=== PATIENT | male | born 1940 | race Caucasian/White ===

== ENCOUNTER 2020-08-02 03:56 | Inpatient (IN) | payer MEDICARE, OTHER, SELFPAY ==
[2020-08-02] VITALS (15 sets, daily range): BP systolic 96–135; BP diastolic 51–84; PULSE 58–84; RESP 12–18; TEMP 36–37.2; O2SAT 97–100; BMI 20.3
--- NOTE | ~2020-08-02 | CT_ITS ---
EXAMINATION: CT brain wo con DATE: 08/02/2020 04:45 INDICATION: Fall. Altered mental status. TECHNIQUE: Computed tomography (CT) of the head was performed without intravenous contrast. The mA wa s adjusted according to patient size. Iterative reconstruction technique was employed. Exam dose: 68 1.00 mGy-cm total exam DLP. COMPARISON: 04/02/2015 CT brain FINDINGS: Bilateral vertebral artery and carotid siphon internal carotid artery calcifications. There is nonspecific diminished attenuation of the cerebral white matter, likely due to chronic small vess el ischemic changes. No intracranial mass lesion or hemorrhage, midline shift or mass effect effect. There is central and cortical cerebral atrophy. No subdural or epidural hematoma is detected. IMPRESSION: Cerebral atherosclerosis and chronic small vessel ischemic changes of the cerebral white matter No acute intracranial finding Reviewed, dictated and finalized at [facility]. Reviewed, dictated and finalized at location A.
--- NOTE | ~2020-08-02 | XR_ITS ---
XR chest 1V DATE: 08/02/2020 04:48 INDICATION: Transient alteration of awareness TECHNIQUE: AP chest on 08/02/2020 at 0445 hours COMPARISON: 03/25/2010 PA and lateral chest FINDINGS: Heart size appears within normal range. Is aortic calcification and mild unfolding. No donald r or mediastinal enlargement. Minimal atelectasis in the lower lung zones; otherwise no pulmonary con solidation, pleural effusion or pneumothorax. Diffuse osteopenia. Surgical clips, right upper quadrant, consistent with cholecystectomy degenerative spurring of the th oracic spine. IMPRESSION: Minimal atelectasis in the lower lung zones; otherwise no active disease Reviewed, dictated and finalized at location [facility]. IMPRESSION: Minimal atelectasis in the lower lung zones; otherwise no active di sease
--- NOTE | ~2020-08-02 | CT_ITS ---
EXAMINATION: CT cervical spine wo con DATE: 08/02/2020 04:45 INDICATION: Neck pain. Fall. TECHNIQUE: Computed tomography (CT) of the cervical spine was performed without intravenous contrast. Automated exposure control and iterative reconstruction technique were employed. The dose-length pro duct was 216.84 mGy-cm. COMPARISON: None FINDINGS: Bone alignment is normal. Vertebral body heights are normal. There is moderately decreased disc height at C3-C4 and C5-C6. The following disc levels are specifically discussed: C2-C3: There is mild bilateral uncovertebral joint osteoarthritis. There is moderate bilateral facet joint osteoarthritis. There is no neural foraminal stenosis. There is no central canal stenosis. C3-C4: There is mild right and severe left uncovertebral joint osteoarthritis. There is moderate righ t facet joint osteoarthritis. There is ankylosis of left facet joint with mild hypertrophy. There is mild bilateral neural foraminal stenosis. There is mild central canal stenosis. C4-C5: There is no uncovertebral joint osteoarthritis. There is mild right and moderate left facet kobi int osteoarthritis. There is no neural foraminal stenosis. There is no central canal stenosis. C5-C6: There is mild right and moderate left uncovertebral joint osteoarthritis. There is mild bilate ral facet joint osteoarthritis. There is mild left neural foraminal stenosis. There is mild central c anal stenosis. C6-C7: There is no uncovertebral joint osteoarthritis. There is mild bilateral facet joint osteoarthr itis. There is no neural foraminal stenosis. There is no central canal stenosis. C7-T1: There is no uncovertebral joint osteoarthritis. There is mild right and moderate left facet kobi int osteoarthritis. There is mild left neural foraminal stenosis. There is no central canal stenosis. IMPRESSION: 1. No fracture. 2. Moderate cervical spondylosis. Reviewed, dictated and finalized at location D.
--- NOTE | ~2020-08-02 | US_ITS ---
EXAMINATION: US abdomen complete DATE: 08/05/2020 14:39 INDICATION: Pancytopenia. TECHNIQUE: Multiple grayscale and Doppler ultrasound images of the abdomen were obtained. COMPARISON: None FINDINGS: The pancreas is obscured by bowel gas. The liver is normal without focal lesion. There is n ormal flow in main portal vein. The gallbladder is absent. The common duct is normal and measures 5 m m. The kidneys are normal in size. The spleen is normal in size and measures 11.6 cm. Abdominal aorta is normal in caliber. The inferior vena cava is normal. IMPRESSION: 1. Normal complete abdomen ultrasound status post cholecystectomy. Reviewed, dictated and finalized at location A.
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
--- NOTE | 2020-08-02 04:07 | ECG_ITS ---
Measurements Intervals [place] Rate: 76 P: 56 RI: 165 QRS: 46 QRSD: 98 T: 87 QT: 377 QTc: 424 Interpretive Statements SINUS RHYTHM CANNOT RULE OUT SEPTAL INFARCT, AGE INDETERMINATE ST-T WAVE ABNORMALITY IN ANTERIOR LEADS- CONSIDER ISCHEMIA BASELINE ARTIFACT- II, III, AVF, V1-V6 ABNORMAL ECG Electronically Signed On 08-02-2020 6:51:53 CDT by Ron Cornell D.O.
--- NOTE | 2020-08-02 04:12 | PC.NURSE ---
EDMD presented to bedside. adds that pt has not been hydrating well. Pt is calm and cooperative at this time and resting on cart in its lowest position with call button and personal items within reach. advised to press call button for assistance.
[2020-08-02] MEDS: SODIUM CHLORIDE 0.9% IV 500 ML 999 ML IV CONT (04:17)
[2020-08-02 04:24] LABS: Alveolar/Arterial O2 Gradient 15.1 mmHg; Base Excess ABG 3.1 mEq/l (+/-2.0); Fractional Inspired Oxygen 21 %; HCO3 ABG 27.9 mEq/l (22.0-26.0); Oxygen Content ABG 15.2 %vol (16.0-22.0); Oxygen Saturation ABG 96.3 % (95.0-100.0); Oxyhemoglobin 94.9 % THb (90.0-100.0); PCO2 ABG 43.6 mmHg (35.0-45.0); PO2 ABG 82.4 mmHg (80.0-100.0); PO2 FiO2 Ratio Arterial Blood 3.92 %; Total Hemoglobin 11.3 g/dL (12.0-18.0); pH ABG 7.424 (7.350-7.450)
[2020-08-02 04:25] LABS: Device ROOM AIR; Modified Allen's Test Pass; Site Drawn LEFT RADIAL
[2020-08-02 04:31] LABS: Basophils Percent Auto 0.2 % (0.2-1.2); Eosinophils Absolute Auto 0.1 K/mm3 (0-0.3); Eosinophils Percent Auto 1.4 % (0-4.4); Hematocrit 35.5 % (42.0-52.0); Hemoglobin 11.3 g/dL (14.0-18.0); Immature Granulocyte Absolute 0.01 K/mm3 (0.00-0.031); Immature Granulocyte Percent A 0.2 % (0-0.5); Lymphocytes Absolute Auto 0.94 K/mm3 (0.9-3.2); Lymphocytes Percent Auto 22.4 % (18.3-44.2); Mean Corpuscular HGB Conc 31.8 g/dl (32-36); Mean Corpuscular Hemoglobin 31.4 pg (26-34); Mean Corpuscular Volume 98.6 fl (80-100); Mean Platelet Volume 9.1 fl (7.4-10.4); Monocytes Absolute Auto 0.5 K/mm3 (0.1-0.6); Monocytes Percent Auto 11.4 % (2.6-8.5); Neutrophils Absolute Auto 2.7 K/mm3 (1.3-6.7); Neutrophils Percent Auto 64.4 % (45.5-73.1); Platelet Count Result 82 k/mm3 (150-375); Red Cell Distribution Width 13.9 % (11.5-14.5); White Blood Count 4.2 K/mm3 (4.5-10.0)
--- NOTE | 2020-08-02 04:35 | PC.NURSE ---
Pt to radiology via cart.
[2020-08-02 04:41] LABS: INR 0.9; Prothrombin Time 13.1 Seconds (11.1-14.7)
[2020-08-02 04:42] LABS: Partial Thromboplastin Time 21.5 SECONDS (22.3-36.8)
[2020-08-02 04:43] LABS: Acetaminophen < 10 ug/mL (10-30); Ammonia < 9 umol/L (9-30); Ethanol < 10 mg/dL (<10); Salicylate < 1.0 mg/dL (2-20)
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
--- NOTE | 2020-08-02 04:48 | PC.NURSE ---
Pt returned from radiology.
--- NOTE | 2020-08-02 04:50 | PC.NURSE ---
Pt advised that pt will need to be straight cath'd and refuses. states he can urinate on his own; provided a urinal for specimen.
[2020-08-02 05:00] LABS: Alanine Aminotransferase 13 U/L (4-50); Albumin Level 3.7 g/dL (3.5-5.1); Alkaline Phosphatase 77 U/L (38-126); Anion Gap 7 mmol/L (8-16); Aspartate Amino Transferase 22 U/L (17-59); Bilirubin,Total 0.4 mg/dL (0.2-1.3); Blood Urea Nitrogen 22 mg/dL (9-20); Calcium 9.3 mg/dL (8.4-10.2); Carbon Dioxide 31 mmol/L (22-30); Chloride 102 mmol/L (98-107); Estimated CRCL calculation 66 ml/min; Estimated Glomerular Filt Rate > 60; Glucose 199 mg/dL (75-110); Potassium 4.6 mmol/L (3.4-5.0); Sodium 140 mmol/L (137-145)
[2020-08-02 05:02] LABS: Lactic Acid Reflex 2.9 mmol/L (0.7-2.1)
[2020-08-02 05:10] LABS: Glucose Point of Care 170 (65-105)
--- NOTE | 2020-08-02 05:19 | PC.NURSE ---
IV fluids continue to infuse due to positional site. Urine specimen collected and sent to lab. Pt resting on cart in its lowest position with call button and personal items within reach. remains at bedside and is aware of poc with no questions or concerns at this time; advised to press call button for assistance.
[2020-08-02 05:26] LABS: Troponin I 0.383 ng/mL (0.000-0.034)
[2020-08-02 05:26] LABS: Add Urine Microscopic? YES; Appearance Urine Clear (Clear); Bilirubin Urine Negative (Negative); Blood Urine Negative (Negative); Color Urine Amber (Yellow); Glucose Urine UA 2+ mg/dL (Negative); Ketones Urine Trace mg/dL (Negative); Leukocyte Esterase Ur Negative LEU/UL (Negative); Mucus Urine Few /lpf; Nitrate Urine Negative (Negative); Protein Urine 1+ mg/dL (Negative); RBC Urine 0-2 /hpf (0-2); Squamous Epithelial Cell Urine Rare /hpf (Few); WBC Urine 0-3 /hpf
[2020-08-02 05:32] LABS: Specific Grav Ur 1.031 (1.001-1.035)
[2020-08-02 05:45] LABS: Amphetamine Screen Urine Negative (Negative); Barbiturate Screen Urine Negative (Negative); Benzodiazepines Screen Urine Negative (Negative); Cannabinoid Screen Urine Negative (Negative); Cocaine Screen Urine Negative (Negative); Methadone Screen Urine Negative (Negative); Opiate Screen Urine Negative (Negative); Phencyclidine Screen Urine Negative (Negative)
[2020-08-02] MEDS: ASPIRIN 81 MG CHEWABLE TABLET 324 MG PO (05:56)
--- NOTE | 2020-08-02 06:22 | PC.NURSE ---
Son left bedside with mom. States they will be going home and will call later to check on pt. Pt resting on cart with call button and personal items within reach. Advised to press call button for assistance.
--- NOTE | 2020-08-02 06:35 | PC.NURSE ---
Report called to Abby. MARTINEZ to send pt to floor.
--- NOTE | 2020-08-02 06:52 | PC.NURSE ---
This patient, Conner Gaxiola, was admitted to IMU Room 205-01. Patient/family oriented to hospital policies and general routines including ID bracelet, bed and alarms, visiting hours, pain management, procedures, bathroom and other care routines, personal items, smoking policy, room service/diet, and visiting hours. Information on how to activate the Rapid Response Team has been discussed. Patient/Family are encouraged to report perceived risks to care and to ask questions if they do not understand what they are told or what they should do.
[2020-08-02 07:46] LABS: Reflex Lactic Acid Yes or No Add Lactic
[2020-08-02 08:11] LABS: Troponin I 0.341 ng/mL (0.000-0.034)
[2020-08-02] MEDS: ASPIRIN 81 MG CHEWABLE TABLET PO (08:25)
[2020-08-02 11:09] LABS: Troponin I 0.336 ng/mL (0.000-0.034)
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
[2020-08-02] MEDS: CARBIDOPA/LEVODOPA 25/100 MG TABLET 2 TABLET PO ×2 (17:12→20:02)
[2020-08-02] MEDS: CARBIDOPA/LEVODOPA 12.5/50 MG TABLET 1 TABLET PO ×2 (17:13→20:02)
[2020-08-02] MEDS: levETIRAcetam 500 MG TABLET PO (17:13)
[2020-08-02] MEDS: GABAPENTIN 300 MG CAPSULE PO (17:14)
[2020-08-02] MEDS: metFORMIN HCL 500 MG TABLET 1000 MG PO (17:14)
[2020-08-02] MEDS: SODIUM CHLORIDE 0.9% IV 1,000 ML 100 ML IV CONT (18:57)
[2020-08-02] MEDS: QUEtiapine FUMARATE 25 MG TABLET 50 MG PO (20:02)
[2020-08-02] MEDS: clonazePAM (*CRX) 0.5 MG TABLET PO (20:02)
[2020-08-02 22:10] LABS: Glucose Point of Care 176 (65-105)
[2020-08-03] VITALS (16 sets, daily range): BP systolic 90–162; BP diastolic 49–68; PULSE 55–92; RESP 12–18; TEMP 35.5–36.7; O2SAT 16–100
--- NOTE | 2020-08-03 | ECHO_ITS ---
Patient Info Name: Conner Gaxiola Age: 79 years : 1940 Gender: Male Ht: 70 in Wt: 141 lbs BSA: 1.77 m2 HR: 60 bpm BP: 122 / 58 mmHg Heart Rhythm: Sinus Rhythm Technical Quality: Fair Exam Date: 08/03/2020 11:53 AM Exam Location: [facility] Exam Room: [facility] Patient Status: Inpatient Admit Date: 08/02/2020 Staff Ordering Physician: Nayan Tristan MD House Manager: Bhavna Quezada RDCS Attending Provider: Francis Hernandez MD Referring Physician: Kun ALEJANDRA; Exam Type: CA echo doppler color flow Study Info Indications - NON STEMI Complete two-dimensional, color flow and Doppler transthoracic echocardiogram is performed. Summary 1. Complete two-dimensional, color flow and Doppler transthoracic echocardiogram is performed. 2. Left ventricular chamber dimension is normal. 3. Left ventricular systolic function is severely reduced, estimated at 25-30%. 4. There is mildly increased left ventricular wall thickness. 5. The left ventricular diastolic function is grade I diastolic dysfunction. 6. The anterior wall, anterolateral wall, inferolateral wall, apical septum, apical cap, mid inferoseptal, and mid anteroseptal are hypokinetic. 7. Left atrial chamber dimension is mildly enlarged. 8. There is mild mitral valve regurgitation. 9. The mitral valve has thickened leaflets, calcified leaflets and calcified annulus. 10. There is mild tricuspid valve regurgitation. Left Ventricle Left ventricular chamber dimension is normal. Left ventricular systolic function is severely reduced, estimated at 25-30%. There is mildly increased left ventricular wall thickness. The left ventricular diastolic function is grade I diastolic dysfunction. The anterior wall, anterolateral wall, inferolateral wall, apical septum, apical cap, mid inferoseptal, and mid anteroseptal are hypokinetic. All other pineda appear normal. Right Ventricle Right ventricular chamber dimension is normal. Right ventricular systolic function is normal. Left Atria Left atrial chamber dimension is mildly enlarged. Right Atria Right atrial chamber dimension is normal. Atrial Septum Intact interatrial septum visualized by color flow imaging. Aortic Valve The aortic valve is trileaflet. There is mild aortic valve sclerosis. There is no aortic valve stenosis. There is trace aortic valve regurgitation. Pulmonic Valve The pulmonic valve is normal. There is no pulmonic valve stenosis. There is trace pulmonic regurgitation. Mitral Valve The mitral valve has thickened leaflets, calcified leaflets and calcified annulus. There is no mitral valve stenosis. There is mild mitral valve regurgitation. Tricuspid Valve The tricuspid valve leaflets are normal. There is no significant tricuspid valve stenosis. There is mild tricuspid valve regurgitation. No pulmonary hypertension, estimated pulmonary arterial systolic pressure is 27 mmHg. Pericardium/Pleural The pericardium appears normal. There is trivial pericardial effusion. Inferior Vena Cava Dilated inferior vena cava with <50% collapse upon inspiration consistent with elevated right atrial pressure, 10 mmHg. Aorta The aortic root size at the sinus of Valsalva is not well visualized. Left Ventricular Outflow Tract Name Value Normal
[2020-08-03] MEDS: SODIUM CHLORIDE 0.9% IV 1,000 ML 100 ML IV CONT (04:56)
--- NOTE | 2020-08-03 07:00 | ECG_ITS ---
Measurements Intervals [place] Rate: 63 P: 43 DE: 172 QRS: 29 QRSD: 96 T: 111 QT: 449 QTc: 463 Interpretive Statements SINUS RHYTHM ANTEROSEPTAL INFARCT, AGE INDETERMINATE ST-T WAVE ABNORMALITY IN ANT/HIGH LAT LEADS- CONSIDER ISCHEMIA BASELINE WANDER- I, II, V6 ABNORMAL ECG Electronically Signed On 08-03-2020 12:05:16 CDT by Ron Cornell D.O.
[2020-08-03 07:04] LABS: Basophils Percent Auto 0.2 % (0.2-1.2); Eosinophils Absolute Auto 0.1 K/mm3 (0-0.3); Eosinophils Percent Auto 2.9 % (0-4.4); Hematocrit 31.2 % (42.0-52.0); Immature Granulocyte Absolute 0.01 K/mm3 (0.00-0.031); Immature Granulocyte Percent A 0.2 % (0-0.5); Immature Platelet Fraction Pct 2.2 % (0.9-11.2); Lymphocytes Absolute Auto 1.25 K/mm3 (0.9-3.2); Lymphocytes Percent Auto 30.6 % (18.3-44.2); Mean Corpuscular HGB Conc 32.1 g/dl (32-36); Mean Corpuscular Hemoglobin 30.6 pg (26-34); Mean Corpuscular Volume 95.4 fl (80-100); Mean Platelet Volume 9.4 fl (7.4-10.4); Monocytes Absolute Auto 0.4 K/mm3 (0.1-0.6); Monocytes Percent Auto 9.8 % (2.6-8.5); Neutrophils Absolute Auto 2.3 K/mm3 (1.3-6.7); Neutrophils Percent Auto 56.3 % (45.5-73.1); Platelet Count Result 80 k/mm3 (150-375); Red Blood Count 3.27 M/mm3 (4.6-6.20); Red Cell Distribution Width 13.7 % (11.5-14.5); White Blood Count 4.1 K/mm3 (4.5-10.0)
[2020-08-03 07:11] LABS: Anion Gap 3 mmol/L (8-16); Blood Urea Nitrogen 17 mg/dL (9-20); Calcium 8.9 mg/dL (8.4-10.2); Carbon Dioxide 31 mmol/L (22-30); Chloride 104 mmol/L (98-107); Estimated CRCL calculation 75 ml/min; Estimated Glomerular Filt Rate > 60; Glucose 136 mg/dL (75-110); Potassium 3.8 mmol/L (3.4-5.0); Sodium 138 mmol/L (137-145)
[2020-08-03 07:32] LABS: Troponin I 0.337 ng/mL (0.000-0.034)
[2020-08-03 07:57] LABS: Glucose Point of Care 129 (65-105)
[2020-08-03] MEDS: CARBIDOPA/LEVODOPA 25/100 MG TABLET 2 TABLET PO ×3 (08:52→19:34)
[2020-08-03] MEDS: PIOGLITAZONE HCL 30 MG TABLET PO (08:52)
[2020-08-03] MEDS: levETIRAcetam 500 MG TABLET PO ×2 (08:52→12:31)
[2020-08-03] MEDS: GABAPENTIN 300 MG CAPSULE PO (08:52)
[2020-08-03] MEDS: metFORMIN HCL 500 MG TABLET 1000 MG PO (08:52)
[2020-08-03] MEDS: glipiZIDE 5 MG TABLET PO (08:53)
[2020-08-03] MEDS: ATORVASTATIN 20 MG TABLET PO (08:53)
[2020-08-03] MEDS: CARBIDOPA/LEVODOPA 12.5/50 MG TABLET 1 TABLET PO ×3 (08:53→19:33)
[2020-08-03] MEDS: ASPIRIN 81 MG ENTERIC TABLET PO (08:53)
--- NOTE | 2020-08-03 10:21 | PM.CNCAR ---
Assessment and Plan Assessment and plan (1) Elevated troponin: Code(s): R77.8 - Other specified abnormalities of plasma proteins Status: Acute Assessment and Plan: This is consistent with a non ST elevation myocardial infarction and smoldering ischemia. He likely has a high-grade LAD stenosis. Currently pain-free. Previously has a history of stenting to the RCA in 2007 as well as stenting to the LCX in 2009. Will continue aspirin and statin. Will order a 2D echocardiogram with Doppler. Will start heparin drip per ACS protocol. Nitroglycerin paste 1 in Q 6 hours. Will also try low-dose beta-champ therapy at 6.25 mg of metoprolol Q 12. Up titrate as blood pressure will allow. I did talk to him and his about a coronary angiogram to define his anatomy. They are in agreement and he adamantly states ?fix it ?. Plan will be for coronary angiogram Wednesday but will have a low threshold to pursue catheterization earlier if need be. (2) CAD (coronary artery disease): Code(s): I25.10 - Atherosclerotic heart disease of [place] coronary artery without angina pectoris Status: Acute Assessment and Plan: As detailed above (3) Hypertension: Code(s): I10 - Essential (primary) hypertension Status: Acute Assessment and Plan: Controlled (4) Hyperlipidemia: Code(s): E78.5 - Hyperlipidemia, unspecified Status: Acute Assessment and Plan: On statin (5) Parkinsons disease: Code(s): G20 - Parkinson's disease Status: Acute Assessment and Plan: With associated dementia. History of Present Illness History of Present Illness Consult date/time: 08/03/20 10:21 Requesting physician: Gail Blake MD Consult reason: chest pain and Other (Elevated troponin) Reason For Visit: altered mental status,frequentfalls elevated tropo Narrative: Date of service 08/03/2020 For history: Patient is an 79-year-old male who formally saw Dr. Martinez. His states that he simply quit going to see cardiology several years ago. He does have a history of 2 stents. In 2007 he had a stent placed to a 99% stenosis of the RCA. This was performed at [facility]. In 2009 he had a high-grade circumflex lesion that was also stented. Both of these procedures were performed by Dr. Martinez. Patient does have a history of Parkinson's disease as well as some recent diagnosis of dementia. He however has still been functional. He came to the hospital initially because of a fall and ?possible seizure ?. He was also displaying some aggressive behavior and some mental status changes. Upon further questioning however the patient did have chest pain for couple of hours yesterday and also has been having chest pain intermittent for the past week. One week ago his states that he had significant chest pain that lasted for hours. He initially told me that he was not having any recent chest pain. He currently is pain-free. He denies any syncope, presyncope, paroxysmal nocturnal dyspnea, orthopnea, edema or palpitations. His symptoms did not radiate to his arm back neck were drawn or associated with shortness of breath nausea or sweating Review of Systems Review of Systems: All systems reviewed & are unremarkable except as noted in HPI and below Constitutional: Constitutional: Denies fatigue Eyes: Eyes: Denies blurry vision ENT: Reports Normal hearing present Cardiovascular: Cardiovascular: Reports chest pain Respiratory: Respiratory: Denies dyspnea Gastrointestinal: Gastrointestinal: Denies abdominal pain Genitourinary: Genitourinary: Denies dysuria and Denies urinary frequency Musculoskeletal: Musculoskeletal: Denies back pain and Denies neck pain Integumentary/Breasts: Skin/Breast: Denies dry skin Neurologic: Denies headache(s) Psychiatric: Psychiatric: Denies anxiety and Reports confusion Endocrine: Endocrine: Denies fatigue Hematologic/Lymphatic:
[2020-08-03 11:08] LABS: Basophils Percent Auto 0.3 % (0.2-1.2); Eosinophils Absolute Auto 0.1 K/mm3 (0-0.3); Eosinophils Percent Auto 1.7 % (0-4.4); Hematocrit 33.4 % (42.0-52.0); Hemoglobin 10.6 g/dL (14.0-18.0); Immature Granulocyte Absolute 0.01 K/mm3 (0.00-0.031); Immature Granulocyte Percent A 0.3 % (0-0.5); Immature Platelet Fraction Pct 1.8 % (0.9-11.2); Lymphocytes Absolute Auto 0.77 K/mm3 (0.9-3.2); Lymphocytes Percent Auto 22.1 % (18.3-44.2); Mean Corpuscular HGB Conc 31.7 g/dl (32-36); Mean Corpuscular Hemoglobin 31.4 pg (26-34); Mean Corpuscular Volume 98.8 fl (80-100); Mean Platelet Volume 8.9 fl (7.4-10.4); Monocytes Absolute Auto 0.2 K/mm3 (0.1-0.6); Monocytes Percent Auto 6.9 % (2.6-8.5); Neutrophils Absolute Auto 2.4 K/mm3 (1.3-6.7); Neutrophils Percent Auto 68.7 % (45.5-73.1); Platelet Count Result 97 k/mm3 (150-375); Red Blood Count 3.38 M/mm3 (4.6-6.20); Red Cell Distribution Width 13.8 % (11.5-14.5); White Blood Count 3.5 K/mm3 (4.5-10.0)
[2020-08-03] MEDS: METOPROLOL TARTRATE 6.25 MG TABLET PO ×2 (11:08→20:14)
[2020-08-03] MEDS: HEPARIN SOD/D5W 100 UNITS/ML 25,000 UNITS/250 ML BAG 8 UNITS IV CONT (11:09)
[2020-08-03] MEDS: HEPARIN SODIUM 5,000 UNITS/ML VIAL 4000 UNITS IV PUSH ×2 (11:09→18:08)
[2020-08-03 11:19] LABS: Prothrombin Time 13.7 Seconds (11.1-14.7)
[2020-08-03 11:47] LABS: Glucose Point of Care 150 (65-105)
--- NOTE | 2020-08-03 12:03 | WPDNEURCNPN ---
Assessment and Plan Assessment and plan (1) Parkinsons disease: Code(s): G20 - Parkinson's disease Status: Acute Additional Plan ongoing history of seizures, Parkinson disease, and cardiological abnormalities as mentioned above the patient was recently started on the new medication by Dr. Coats as far as the neurological status concern he is stable but cardiologically further workup is planned to follow the patient along with you Consult date: 08/03/20 Time Seen: 11:30 HPI: Conner Gaxiola is a 79 year old male admitted to the hospital through the emergency room with the ongoing history of 1. Parkinson disease 2. Seizure disorder and with the description that he had a seizure and got confused and fell and hit his head. patient recently started on the medication by Dr. Coats. routine labs revealed him to be mildly leukopenic and anemic with low platelet count normal coagulation profile, and fairly normal BMP with elevated blood sugar, UA with mild records story a and protein year toxicology screen negative and levetiracetam level pending and COVID screening is also pending, in addition to clonazepam 0.5 mg at HS is taking carbidopa levodopa 25/102.5 tablets q.i.d. along with the entacapone 200 mg 3 times a day. He is also on Seroquel 50 mg at HS, patient has been seen by the line and frame poler as well causing the non ST elevated myocardial infarction with the possibility of high-grade lad stenosis without any pain at this particular time they have suggested to continue aspirin and statin and also the 2D echocardiogram he has been started on heparin drip per [facility] protocol along with the low-dose beta champ 6.25 mg q.12 hours and will have coronary angiogram on Wednesday Review of Systems Review of Systems: All systems reviewed & are unremarkable except as noted in HPI and below [facility] Past Medical History Medical History CAD (coronary artery disease) Hyperlipidemia Hypertension Parkinsons disease Family History Family History Mother Acute myocardial infarction Social History Social History Smoking packs per day: 1 Smoking cigarettes per day: 20.0 Years smoked: 10 Smoking pack-years: 10.00 Smoking status: Former smoker Spiritual care concerns: No Meds Home Medications and Allergies Home Medications Medication Instructions Recorded Confirmed Type aspirin [Adult Aspirin EC Low 81 mg PO DAILY 08/02/20 08/02/20 History Strength] atorvastatin 20 mg PO DAILY 08/02/20 08/02/20 History carbidopa-levodopa 2.5 tablet PO QID 08/02/20 08/02/20 History clonazepam 0.5 mg PO HS 08/02/20 08/02/20 History entacapone 200 mg PO TID 08/02/20 08/02/20 History gabapentin 300 mg PO BID 08/02/20 08/02/20 History glipizide 5 mg PO DAILY 08/02/20 08/02/20 History levetiracetam 500 mg PO TID 08/02/20 08/02/20 History metformin 1,000 mg PO BID 08/02/20 08/02/20 History pioglitazone 30 mg PO DAILY 08/02/20 08/02/20 History quetiapine 50 mg PO HS 08/02/20 08/02/20 History Allergies Allergy/AdvReac Type Severity Reaction Status Date / Time atorvastatin Allergy Unknown sick Verified 04/01/15 11:15 pravastatin Allergy Unknown sick Verified 04/01/15 11:15 simvastatin AdvReac Unknown nausea Verified 08/02/20 04:13 Vital Signs Vital Signs - 24 hr 08/02/20 14:00 08/02/20 16:00 08/02/20 19:59 Temperature 36.4 C 36.6 C Pulse Rate 75 66 68 Respiratory Rate 12 15 Blood Pressure 126/63 128/70 Pulse Oximetry 99 99 08/02/20 20:00 08/02/20 22:00 08/03/20 00:00 Temperature 36.3 C L Pulse Rate 67 58 L 59 L Respiratory Rate 16 Blood Pressure 90/49 L Pulse Oximetry 16 L 08/03/20 02:00 08/03/20 04:00 08/03/20 06:00 Temperature 36.3 C L Pulse Rate 63 56 L 57 L Respiratory Rate 16 Blood Pressure 93/50 L Pulse Oximetry 97 08/03/20 08:00 08/03/20 10:00
[2020-08-03] MEDS: NITROGLYCERIN OINTMENT 1 INCH DOSE 0.5 INCH TRANSDERM ×3 (12:30→23:23)
--- NOTE | 2020-08-03 14:11 | PM.IMPN ---
Progress Note: A&P Assessment and Plan (1) Altered mental status: Qualifiers: Altered mental status type: unspecified Qualified Code(s): R41.82 - Altered mental status, unspecified Code(s): R41.82 - Altered mental status, unspecified Status: Acute Assessment and Plan: Pt has history of Parkinson CT head and CT spine and CXR - Nil apart from moderate spondylolysis ? seizure related AMS start oral keppra and watch for any more seizures consult neurology Pt had similar episode of seizures before and was admitted at that time. (2) Elevated troponin: Code(s): R77.8 - Other specified abnormalities of plasma proteins Status: Acute Assessment and Plan: Cardiology Consulted (3) New medication added: Code(s): Z79.899 - Other custodial (current) drug therapy Status: Acute Assessment and Plan: Hold new medications - entacapone. consult other medications (4) Dehydration: Code(s): E86.0 - Dehydration Status: Acute Assessment and Plan: Hydrate with iv fluids watch kidney function (5) Pancytopenia: Code(s): D61.818 - Other pancytopenia Status: Acute Assessment and Plan: wcc is low, hb is low, plts is low consult hematology/ oncology (6) NSTEMI (non-ST elevated myocardial infarction): Code(s): I21.4 - Non-ST elevation (NSTEMI) myocardial infarction Status: Acute Assessment and Plan: Heparin drip started, ASA, NTG, betablockers , statin started pt for heart cath on Wednesday NSTEMI secondary to Abnl EKG and elevated troponin. Subjective Date/time seen: 08/03/20 14:11 Interval history: 79-year-old gentleman who presents to the emergency department with chief complaint of altered mental status. History from on admission as pt was somnolent, pt is more awake today. No seizures today. Seen cardiology and neurology pt will need heart cath on Wednesday for NSTEMI. Pt started on heparin drip. Review of Systems Review of Systems: All systems reviewed & are unremarkable except as noted in HPI and below Exam Const: Nutritional Appearance: other (thin and frail ) HENMT: Head: normocephalic Eyes: General: appearance normal, both eyes and all related structures Pupils: Equal, round and reactive pupils present Neck: Neck: supple Chest: Chest palpation & inspection: normal inspection of the chest Resp: Effort & Inspection: normal respiratory effort Auscultation: clear to auscultation bilaterally Cardio: Jugular venous distension: no JVD Rhythm: regular rhythm Heart sounds: S1 normal heart sound present and S2 normal heart sound present GI: Inspection: normal to inspection Auscultation: normal bowel sounds Skin: General skin exam: normal color and dry skin Neuro: Cranial nerves: Yes CN's II-XII intact bilaterally and Yes Equal, round and reactive pupils present Cognition (Neuro): normal cognition Speech: normal speech Motor exam (neuro): 5/5 motor strength present throughout Extrem: General: normal to inspection Psych: Appearance: grossly normal Mental Status: mental status grossly normal Objective Data Vital Signs Vital Signs: Vital Signs - 24 hr 08/02/20 16:00 08/02/20 19:59 08/02/20 20:00 Temperature 36.4 C 36.6 C Pulse Rate 66 68 67 Respiratory Rate 12 15 Blood Pressure 126/63 128/70 Pulse Oximetry 99 99 08/02/20 22:00 08/03/20 00:00 08/03/20 02:00 Temperature 36.3 C L Pulse Rate 58 L 59 L 63 Respiratory Rate 16 Blood Pressure 90/49 L Pulse Oximetry 16 L 08/03/20 04:00 08/03/20 06:00 08/03/20 08:00 Temperature 36.3 C L 36.7 C Pulse Rate 56 L 57 L 63 Respiratory Rate 16 12 Blood Pressure 93/50 L 122/58 L Pulse Oximetry 97 98 08/03/20 10:00 08/03/20 11:08 08/03/20 12:00 Temperature 36.6 C Pulse Rate 67 66 58 L Respiratory Rate 12 Blood Pressure 113/61 Pulse Oximetry 98 08/03/20 14:01 Temperature Pulse Rate 56 L Respirator
[2020-08-03 15:57] LABS: Glucose Point of Care 145 (65-105)
[2020-08-03 17:39] LABS: Partial Thromboplastin Time 52.4 SECONDS (22.3-36.8)
[2020-08-03] MEDS: QUEtiapine FUMARATE 25 MG TABLET 50 MG PO (19:33)
[2020-08-03] MEDS: clonazePAM (*CRX) 0.5 MG TABLET PO (19:34)
[2020-08-03 20:54] LABS: SARS-CoV-2 RNA PCR Negative
[2020-08-03 20:55] LABS: Glucose Point of Care 136 (65-105)
[2020-08-03] MEDS: LORazepam INJ (*CRX) 2 MG/ML VIAL 0.5 MG IV PUSH (22:45)
[2020-08-03] MEDS: OLANZapine 10 MG INJ VIAL IM (23:31)
[2020-08-03] MEDS: WATER, STERILE FOR INJECTION 10 ML VIAL XX (23:33)
[2020-08-04] VITALS (18 sets, daily range): BP systolic 106–143; BP diastolic 57–89; PULSE 58–83; RESP 12–20; TEMP 35.9–36.6; O2SAT 92–100
[2020-08-04 00:35] LABS: Partial Thromboplastin Time > 200.0 SECONDS (22.3-36.8)
[2020-08-04] MEDS: NITROGLYCERIN OINTMENT 1 INCH DOSE 0.5 INCH TRANSDERM ×4 (06:12→23:44)
[2020-08-04 07:59] LABS: Glucose Point of Care 145 (65-105)
[2020-08-04] MEDS: METOPROLOL TARTRATE 6.25 MG TABLET PO (08:17)
[2020-08-04] MEDS: levETIRAcetam 500 MG TABLET PO ×3 (08:17→16:20)
[2020-08-04 08:20] LABS: Basophils Percent Auto 0.4 % (0.2-1.2); Eosinophils Percent Auto 0.4 % (0-4.4); Hematocrit 33.5 % (42.0-52.0); Hemoglobin 10.8 g/dL (14.0-18.0); Immature Granulocyte Absolute 0.02 K/mm3 (0.00-0.031); Immature Granulocyte Percent A 0.4 % (0-0.5); Lymphocytes Absolute Auto 0.69 K/mm3 (0.9-3.2); Lymphocytes Percent Auto 15.1 % (18.3-44.2); Mean Corpuscular HGB Conc 32.2 g/dl (32-36); Mean Corpuscular Hemoglobin 31.2 pg (26-34); Mean Corpuscular Volume 96.8 fl (80-100); Monocytes Absolute Auto 0.3 K/mm3 (0.1-0.6); Monocytes Percent Auto 6.8 % (2.6-8.5); Neutrophils Absolute Auto 3.5 K/mm3 (1.3-6.7); Neutrophils Percent Auto 76.9 % (45.5-73.1); Platelet Count Result 78 k/mm3 (150-375); Red Blood Count 3.46 M/mm3 (4.6-6.20); Red Cell Distribution Width 13.4 % (11.5-14.5); White Blood Count 4.6 K/mm3 (4.5-10.0)
--- NOTE | 2020-08-04 10:11 | PM.PNCARD ---
Progress Note: A&P Assessment and Plan (1) Elevated troponin: Code(s): R77.8 - Other specified abnormalities of plasma proteins Status: Acute Assessment and Plan: This is consistent with a non ST elevation myocardial infarction and smoldering ischemia. He likely has a high-grade LAD stenosis. Currently pain-free. Previously has a history of stenting to the RCA in 2007 as well as stenting to the LCX in 2009. Will continue aspirin and statin. Will increase his metoprolol to 12.5 mg p.o. b.i.d. tentatively keep him NPO after midnight for possible coronary angiogram tomorrow. They are in agreement and he adamantly states ?fix it ?. Avoid sedating meds (2) CAD (coronary artery disease): Code(s): I25.10 - Atherosclerotic heart disease of [place] coronary artery without angina pectoris Status: Acute Assessment and Plan: As detailed above (3) Hypertension: Code(s): I10 - Essential (primary) hypertension Status: Acute Assessment and Plan: Controlled (4) Hyperlipidemia: Code(s): E78.5 - Hyperlipidemia, unspecified Status: Acute Assessment and Plan: On statin (5) Parkinsons disease: Code(s): G20 - Parkinson's disease Status: Acute Assessment and Plan: With associated dementia. (6) Cardiomyopathy: Code(s): I42.9 - Cardiomyopathy, unspecified Status: Acute Assessment and Plan: Ischemic and severe Subjective Date/time seen: 08/04/20 10:11 Interval history: 79-year-old gentleman who presents to the emergency department with chief complaint of altered mental status. History from on admission as pt was somnolent, pt is more awake today. No seizures today. Date of service 08/04/2020: Became agitated yesterday and subsequently received Zyprexa and Ativan. Now he is even more confused and agitated. Denies any chest pain or shortness of breath. Review of Systems Review of Systems: All systems reviewed & are unremarkable except as noted in HPI and below Constitutional: Constitutional: Denies fatigue and Denies headache(s) Eyes: Eyes: Denies blurry vision ENT: Reports Normal hearing present, Denies headache(s) and Denies neck pain Cardiovascular: Cardiovascular: Reports chest pain and Denies dyspnea Respiratory: Respiratory: Denies dyspnea Gastrointestinal: Gastrointestinal: Denies abdominal pain Genitourinary: Genitourinary: Denies dysuria and Denies urinary frequency Musculoskeletal: Musculoskeletal: Denies back pain and Denies neck pain Integumentary/Breasts: Skin/Breast: Denies dry skin Neurologic: Reports Normal hearing present, Reports confusion and Denies headache(s) Psychiatric: Psychiatric: Denies anxiety and Reports confusion Endocrine: Endocrine: Denies fatigue Hematologic/Lymphatic: Hematologic/Lymphatic: Denies easy bleeding Allergic/Immunologic: Allergic/Immunologic: Denies GI upset with certain foods Exam Narrative: Exam Narrative: Awake alert. No acute distress at this point. Appears stated age Const: General: comfortable, no acute distress and confusion Orientation/consciousness: confusion HENMT: General nose exam: Normal nares present Eyes: Sclera: sclerae normal Neck: Neck: supple and no JVD Chest: Other: No reproducible chest wall pain to palpation Resp: Auscultation: clear to auscultation bilaterally Cardio: Rate: regular rate Rhythm: regular rhythm GI: Inspection: normal to inspection Skin: General skin exam: normal color Neuro: General: confusion Cranial nerves: Yes Normal hearing present Cognition (Neuro): normal cognition Speech: normal speech Extrem: General: normal to inspection and no edema Psych: Mental Status: mental status grossly normal Objective Data Vital Signs Vital Signs: Vital Signs - 24 hr 08/03/20 11:08 08/03/20 12:00 08/03/20 14:01 Temperature 36.6 C Pulse Rate 66 58 L 56 L Respiratory Rate 12 Blood Pres
--- NOTE | 2020-08-04 11:15 | PC.NURSE ---
Patient refusing to take medications with applesauce. Was able to get patient to PO keppra and metoprolol with applesauce at 8:30am.
--- NOTE | 2020-08-04 11:31 | PM.IMPN ---
Progress Note: A&P Assessment and Plan (1) Altered mental status: Qualifiers: Altered mental status type: unspecified Qualified Code(s): R41.82 - Altered mental status, unspecified Code(s): R41.82 - Altered mental status, unspecified Status: Acute Assessment and Plan: Pt has history of Parkinson CT head and CT spine and CXR - Nil apart from moderate spondylolysis ? seizure related AMS start oral keppra and watch for any more seizures Consult neurology Pt had similar episode of seizures before and was admitted at that time. (2) Elevated troponin: Code(s): R77.8 - Other specified abnormalities of plasma proteins Status: Acute Assessment and Plan: Cardiology Consulted pt is on heparin drip (3) New medication added: Code(s): Z79.899 - Other terminal clerk (current) drug therapy Status: Acute Assessment and Plan: Hold new medications - entacapone. continue other medications (4) Dehydration: Code(s): E86.0 - Dehydration Status: Acute Assessment and Plan: Hydrate with iv fluids watch kidney function (5) Pancytopenia: Code(s): D61.818 - Other pancytopenia Status: Acute Assessment and Plan: wcc is low, hb is low, plts is low consult hematology/ oncology (6) NSTEMI (non-ST elevated myocardial infarction): Code(s): I21.4 - Non-ST elevation (NSTEMI) myocardial infarction Status: Acute Assessment and Plan: Heparin drip started, ASA, NTG, betablockers , statin started pt for heart cath on Wednesday NSTEMI secondary to Abnl EKG and elevated troponin. Subjective Date/time seen: 08/04/20 11:31 Interval history: 79-year-old gentleman who presents to the emergency department with chief complaint of altered mental status. History from on admission as pt was somnolent with seizure. Pt will need heart cath on Wednesday for NSTEMI. Pt started on heparin drip. Pt denies chest pain today or sob. Pt appears pleasant confused. No further seizures. Review of Systems Review of Systems: All systems reviewed & are unremarkable except as noted in HPI and below Exam Narrative: Exam Narrative: Pleasantly confused Const: Nutritional Appearance: other (thin and frail ) HENMT: Head: normocephalic Eyes: General: appearance normal, both eyes and all related structures Pupils: Equal, round and reactive pupils present Neck: Neck: supple Chest: Chest palpation & inspection: normal inspection of the chest Resp: Effort & Inspection: normal respiratory effort Auscultation: clear to auscultation bilaterally Cardio: Jugular venous distension: no JVD Rhythm: regular rhythm Heart sounds: S1 normal heart sound present and S2 normal heart sound present GI: Inspection: normal to inspection Auscultation: normal bowel sounds Skin: General skin exam: normal color and dry skin Neuro: Cranial nerves: Yes CN's II-XII intact bilaterally and Yes Equal, round and reactive pupils present Cognition (Neuro): normal cognition Speech: normal speech Motor exam (neuro): 5/5 motor strength present throughout Extrem: General: normal to inspection Psych: Appearance: grossly normal Mental Status: mental status grossly normal Objective Data Vital Signs Vital Signs: Vital Signs - 24 hr 08/03/20 12:00 08/03/20 14:01 08/03/20 16:00 Temperature 36.6 C 36.6 C Pulse Rate 58 L 56 L 63 Respiratory Rate 12 14 Blood Pressure 113/61 115/63 Pulse Oximetry 98 98 08/03/20 18:00 08/03/20 20:00 08/03/20 20:14 Temperature 36.1 C L Pulse Rate 64 65 65 Respiratory Rate 18 Blood Pressure 162/68 H Pulse Oximetry 99 08/03/20 22:00 08/03/20 22:37 08/03/20 23:00 Temperature 35.5 C L Pulse Rate 92 81 Respiratory Rate 16 Blood Pressure 113/63 119/49 L Pulse Oximetry 100 08/04/20 00:00 08/04/20 02:00 08/04/20 03:03 Temperature 35.9 C L Pulse Rate 73 72 66 Respiratory Rate 18 Blood Pressure 1
[2020-08-04 12:16] LABS: Glucose Point of Care 162 (65-105)
[2020-08-04] MEDS: CARBIDOPA/LEVODOPA 25/100 MG TABLET 2 TABLET PO ×3 (12:18→20:37)
[2020-08-04] MEDS: CARBIDOPA/LEVODOPA 12.5/50 MG TABLET 1 TABLET PO ×3 (12:18→20:37)
--- NOTE | 2020-08-04 14:30 | PCOTNOTE ---
Attempted to see patient this date for skilled OT session. However, patient has x2 sitters this date in room due to increased confusion and agitation, per sitter. Patient is not appropriate to be seen this date due to agitation and confusion. Will continue per Plan of Care tomorrow.
[2020-08-04 15:48] LABS: Partial Thromboplastin Time 70.1 SECONDS (22.3-36.8)
[2020-08-04] MEDS: HEPARIN SOD/D5W 100 UNITS/ML 25,000 UNITS/250 ML BAG 10 UNITS IV CONT (16:15)
[2020-08-04] MEDS: HEPARIN SODIUM 5,000 UNITS/ML VIAL 2500 UNITS IV PUSH (16:17)
[2020-08-04] MEDS: metFORMIN HCL 500 MG TABLET 1000 MG PO (16:19)
[2020-08-04] MEDS: GABAPENTIN 300 MG CAPSULE PO (16:20)
[2020-08-04 16:27] LABS: Glucose Point of Care 192 (65-105)
[2020-08-04 20:00] LABS: Glucose Point of Care 201 (65-105)
[2020-08-04] MEDS: clonazePAM (*CRX) 0.5 MG TABLET PO (20:38)
[2020-08-04] MEDS: METOPROLOL TARTRATE 12.5 MG TABLET PO (20:38)
[2020-08-04] MEDS: QUEtiapine FUMARATE 25 MG TABLET 50 MG PO (20:39)
[2020-08-04 22:28] LABS: Partial Thromboplastin Time 148.6 SECONDS (22.3-36.8)
[2020-08-05] VITALS (14 sets, daily range): BP systolic 91–150; BP diastolic 43–75; PULSE 54–90; RESP 18–22; TEMP 35.7–36.4; O2SAT 92–97
[2020-08-05 05:14] LABS: Anion Gap 5 mmol/L (8-16); Blood Urea Nitrogen 13 mg/dL (9-20); Calcium 8.9 mg/dL (8.4-10.2); Carbon Dioxide 31 mmol/L (22-30); Chloride 105 mmol/L (98-107); Estimated CRCL calculation 66 ml/min; Estimated Glomerular Filt Rate > 60; Glucose 128 mg/dL (75-110); Potassium 3.4 mmol/L (3.4-5.0); Sodium 141 mmol/L (137-145)
[2020-08-05 06:22] LABS: Partial Thromboplastin Time 58.1 SECONDS (22.3-36.8)
[2020-08-05] MEDS: NITROGLYCERIN OINTMENT 1 INCH DOSE 0.5 INCH TRANSDERM ×4 (06:36→23:20)
[2020-08-05] MEDS: HEPARIN SODIUM 5,000 UNITS/ML VIAL 2500 UNITS IV PUSH (06:37)
[2020-08-05 08:50] LABS: Glucose Point of Care 156 (65-105)
[2020-08-05] MEDS: CARBIDOPA/LEVODOPA 12.5/50 MG TABLET 1 TABLET PO ×4 (09:36→20:22)
[2020-08-05] MEDS: CARBIDOPA/LEVODOPA 25/100 MG TABLET 2 TABLET PO ×4 (09:38→20:22)
[2020-08-05] MEDS: ATORVASTATIN 20 MG TABLET PO (09:38)
[2020-08-05] MEDS: levETIRAcetam 500 MG TABLET PO ×3 (09:39→17:12)
[2020-08-05] MEDS: METOPROLOL TARTRATE 12.5 MG TABLET PO ×2 (09:39→20:23)
[2020-08-05] MEDS: GABAPENTIN 300 MG CAPSULE PO ×2 (09:40→17:11)
[2020-08-05] MEDS: ASPIRIN 81 MG ENTERIC TABLET PO (09:48)
--- NOTE | 2020-08-05 10:07 | WPDNEUROPN ---
Progress Note: A&P Assessment and Plan (1) Parkinsons disease: Code(s): G20 - Parkinson's disease Status: Acute Additional Plan stable on the present treatment can be followed as an outpatient in our office Review of Systems Review of Systems: All systems reviewed & are unremarkable except as noted in HPI and below Exam Const: General: cooperative, comfortable, no acute distress, alert and awake Nutritional Appearance: average body habitus Orientation/consciousness: oriented to person and oriented to place Limitations: no limitations HENMT: Head: normocephalic Ears: hearing grossly normal bilaterally General nose exam: Normal external nose present Face and sinus: normal facial exam Mouth: Yes Normal oral and palatal mucosa present Eyes: General: appearance normal, both eyes and all related structures Visual Odonnell: normal visual odonnell by confrontation Neck: Neck: full ROM Resp: Effort & Inspection: normal respiratory effort Neuro: General: oriented to person and oriented to place Cranial nerves: Yes CN's II-XII intact bilaterally Cognition (Neuro): normal cognition Speech: normal speech Motor exam (neuro): Pronator motor function not present, No tremor noted, Motor abnormalities not present and Abnormal motor strength present ( 4/5 generally) Sensory Exam: normal sensation Deep tendon reflexes (DTR's): Right triceps reflex intensity grade: 1+, Left triceps reflex intensity grade: 1+, Rt Biceps (C5, C6): 1+, Left biceps reflex intensity grade: 1+, Right brachioradialis reflex intensity grade: 1+, Left brachioradialis reflex intensity grade: 1+, Right patellar reflex intensity grade: 1+, Left patellar reflex intensity grade: 1+, Right ankle reflex intensity grade: 1+ and Left ankle reflex intensity grade: 1+ Plantar Reflex Responses: downgoing: bilateral Coordination: [id number] test normal Psych: Appearance: grossly normal Objective Data Vital Signs Vital Signs: Vital Signs - 24 hr 08/04/20 12:00 08/04/20 14:00 08/04/20 16:00 Temperature 36.6 C 36.6 C Pulse Rate 63 65 71 Respiratory Rate 14 14 Blood Pressure 112/67 106/57 L Pulse Oximetry 100 98 08/04/20 18:00 08/04/20 18:45 08/04/20 19:42 Temperature 36.6 C 36.6 C Pulse Rate 58 L 80 70 Respiratory Rate 14 18 Blood Pressure 110/89 143/72 H Pulse Oximetry 98 99 08/04/20 20:00 08/04/20 20:38 08/04/20 22:00 Temperature Pulse Rate 65 63 64 Respiratory Rate Blood Pressure Pulse Oximetry 08/04/20 23:50 08/05/20 00:00 08/05/20 02:00 Temperature 36.6 C Pulse Rate 68 61 54 L Respiratory Rate 20 Blood Pressure 129/81 Pulse Oximetry 92 08/05/20 04:00 08/05/20 06:00 08/05/20 08:00 Temperature 36.4 C 36.0 C L Pulse Rate 65 57 L 78 Respiratory Rate 18 18 Blood Pressure 150/75 H 91/53 L Pulse Oximetry 92 96 08/05/20 09:39 Temperature Pulse Rate 90 Respiratory Rate Blood Pressure Pulse Oximetry Intake/Output Intake/Output: Intake & Output 08/02/20 08/03/20 08/04/20 08/05/20 23:59 23:59 23:59 23:59 Intake Total 740 2504 450 200 Output Total 300 400 475 250 Balance 440 2104 -25 -50 Meds/Results Medications: Active Medications Generic Name Dose Route Start Last Admin Trade Name Freq PRN Reason Stop Dose Admin Aspirin 81 mg 08/03/20 09:00 08/05/20 09:48 Aspirin 81 Mg Enteric Tablet PO 81 mg DAILY MATTHEW Administration Atorvastatin Calcium 20 mg 08/03/20 09:00 08/05/20 09:38 Atorvastatin 20 Mg Tablet PO 20 mg DAILY MATTHEW Administration Carbidopa/Levodopa 2 tablet 08/02/20 17:00 08/05/20 09:38 Carbidopa/Levodopa 25/100 Mg Tablet PO 2 tablet QID MATTHEW Administration Carbidopa/Levodopa 1 tablet 08/02/20 17:00 08/05/20 09:36 Carbidopa/Levodopa 12.5/50 Mg Tablet PO 1 tablet QID MATTHEW Administration Clonazepam 0.5 mg 08/02/20 21:00 08/04/20 20:38 Clonazepam (*Crx) 0.5 Mg Tablet PO 0.5 mg HS MATTHEW Administration Dextrose 12
--- NOTE | 2020-08-05 10:27 | PM.PNCARD ---
Progress Note: A&P Additional Plan 79-year-old man with history of coronary artery disease and previous PCI as detailed in the chart. He presents to the hospital over the weekend with after having a fall at home and being agitated with mental status alterations after this event. He is currently not reporting any chest pain. Troponin levels were elevated over the weekend but they are not rising and falling in the pattern of acute coronary event they are all flat in the same at 0.3. At this point I would agree with the nursing staff that is not desirable to bring him for an angiogram today that is not at this moment an urgent matter while he is incoherent and agitated. will allow him to eat today keep him NPO after midnight and reassess his mental status tomorrow Agus Martinez MD [facility] Subjective Date/time seen: 08/05/20 10:27 Interval history: 79-year-old gentleman who presents to the emergency department with chief complaint of altered mental status. History from on admission as pt was somnolent, pt is more awake today. No seizures today. Date of service 08/04/2020: Became agitated yesterday and subsequently received Zyprexa and Ativan. Now he is even more confused and agitated. Denies any chest pain or shortness of breath. Date of service 08/05/2020: Today the patient is not reporting any chest pain or cardiac symptoms. The patient was on the schedule for an angiogram after being seen by my partner over the weekend. Nursing staff on the floor expressing significant concern about patient's safety bringing him to the recyclable products sorter where he is experiencing and displaying episodes of significant agitation. He currently is sitting in the chair appears to be relatively calm Exam Const: General: comfortable and no acute distress Other: elderly white male appears to be a bit confused but come not agitated at this moment HENMT: Mouth: Yes moist mucous membranes Eyes: Sclera: sclerae normal Pupils: Equal, round and reactive pupils present Neck: Neck: no JVD Thyroid: thyroid normal Resp: Effort & Inspection: normal respiratory effort Auscultation: clear to auscultation bilaterally Cardio: Rate: regular rate Rhythm: regular rhythm GI: GI Palp: Yes Soft to palpation Auscultation: normal bowel sounds Skin: General skin exam: normal color Neuro: Cognition (Neuro): abnormal cognition Other: appears to be a bit disoriented and confused but at the moment not agitated Extrem: General: normal to inspection Objective Data Vital Signs Vital Signs: Vital Signs - 24 hr 08/04/20 12:00 08/04/20 14:00 08/04/20 16:00 Temperature 36.6 C 36.6 C Pulse Rate 63 65 71 Respiratory Rate 14 14 Blood Pressure 112/67 106/57 L Pulse Oximetry 100 98 08/04/20 18:00 08/04/20 18:45 08/04/20 19:42 Temperature 36.6 C 36.6 C Pulse Rate 58 L 80 70 Respiratory Rate 14 18 Blood Pressure 110/89 143/72 H Pulse Oximetry 98 99 08/04/20 20:00 08/04/20 20:38 08/04/20 22:00 Temperature Pulse Rate 65 63 64 Respiratory Rate Blood Pressure Pulse Oximetry 08/04/20 23:50 08/05/20 00:00 08/05/20 02:00 Temperature 36.6 C Pulse Rate 68 61 54 L Respiratory Rate 20 Blood Pressure 129/81 Pulse Oximetry 92 08/05/20 04:00 08/05/20 06:00 08/05/20 08:00 Temperature 36.4 C 36.0 C L Pulse Rate 65 57 L 78 Respiratory Rate 18 18 Blood Pressure 150/75 H 91/53 L Pulse Oximetry 92 96 08/05/20 09:39 Temperature Pulse Rate 90 Respiratory Rate Blood Pressure Pulse Oximetry Intake/Output Intake/Output: Intake & Output 08/02/20 08/03/20 08/04/20 08/05/20 23:59 23:59 23:59 23:59 Intake Total 740 2504 450 200 Output Total 300 400 475 250 Balance 440 2104 -25 -50 Meds/Results Medications: Active Medications Generic Name Dose Route Start Last Admin Trade Name Freq PRN Reason Stop Dose Admin Aspirin 81 mg 08/03/20 09:00 08/05/20 09:48 Aspirin 81 Mg Enteric Tablet PO 81 m
[2020-08-05] MEDS: CLOPIDOGREL BISULFATE 300 MG TABLET PO (12:10)
[2020-08-05] MEDS: INSULIN ASPART (*BKC) 100 UNITS/ML SUB-Q ×2 (12:43→17:08)
--- NOTE | 2020-08-05 12:43 | PDONCCN ---
HPI - Date of Consult Date/Time: 08/05/20 12:43 Requesting Physician: Francis Hernandez MD Primary Care Provider: Benigno Carlson MD - Consult Narrative Reason for consult: Pancytopenia. Narrative: Conner Gaxiola is a 79 year old male with history of baseline dementia as well as Parkinson's disease. He was admitted to the hospital with mental status changes. He seems to be quite confused at this time and not able to provide much history. According to the chart review patient had episodes of seizure and got confused afterwards. He also fell. He has some bruises in upper extremities. He denies any bleeding including melena hematochezia. His labs showed pancytopenia with WBC count of 4.2 hemoglobin [place] 11[place]3 [place] [address]. Other labs showed elevated troponin level. He was evaluated by Cardiology. His findings are consistent with on non STEMI. Plan was to perform cardiac catheterization but delayed due to patient performance status and confusion. He denies any fever chills. Denies any cough. Denies any shortness of breath. Complain of diffuse weakness along with tiredness and fatigue. Review of Systems - Review of Systems All systems reviewed & are unremarkable except as noted in HPI and bel - Neurologic Reports hearing normal, Reports confusion, Denies headache(s) [facility] Medical History: Medical History (Last Reviewed 08/03/20 @ 12:08 by Bradley Licona MD) CAD (coronary artery disease) Hyperlipidemia Hypertension Parkinsons disease Family History: Family History (Last Reviewed 08/03/20 @ 12:08 by Bradley Licona MD) Mother Acute myocardial infarction - Social History Social History: Social History (Last Reviewed 08/03/20 @ 12:08 by Bradley Licona MD) Others: Spiritual care concerns: No Smoking Status: Smoking status: Former smoker Approximate Smoking End Date: 1962 Smoking Pack-years: Smoking packs per day: 1 Smoking cigarettes per day: 20.0 Years smoked: 10 Smoking pack-years: 10.00 Meds Home Medications Medication Instructions Recorded Confirmed Type aspirin [Adult Aspirin EC Low 81 mg PO DAILY 08/02/20 08/02/20 History Strength] atorvastatin 20 mg PO DAILY 08/02/20 08/02/20 History carbidopa-levodopa 2.5 tablet PO QID 08/02/20 08/02/20 History clonazepam 0.5 mg PO HS 08/02/20 08/02/20 History entacapone 200 mg PO TID 08/02/20 08/02/20 History gabapentin 300 mg PO BID 08/02/20 08/02/20 History glipizide 5 mg PO DAILY 08/02/20 08/02/20 History levetiracetam 500 mg PO TID 08/02/20 08/02/20 History metformin 1,000 mg PO BID 08/02/20 08/02/20 History pioglitazone 30 mg PO DAILY 08/02/20 08/02/20 History quetiapine 50 mg PO HS 08/02/20 08/02/20 History Allergies Allergy/AdvReac Type Severity Reaction Status Date / Time atorvastatin Allergy Unknown sick Verified 04/01/15 11:15 pravastatin Allergy Unknown sick Verified 04/01/15 11:15 simvastatin AdvReac Unknown nausea Verified 08/02/20 04:13 Results - Labs CBC & Chem 7: 08/04/20 07:57 08/05/20 04:40 Labs: BMP 08/05/20 04:40 Sodium 141 Potassium 3.4 Chloride 105 Carbon Dioxide 31 H BUN 13 Creatinine 0.70 Glucose 128 H Calcium 8.9 Assessment and Plan - Additional Plan Pancytopenia. Patient is 79-year-old male with history of dementia and Parkinson disease. He was admitted to the hospital with mental status changes and found to have non STEMI. Troponin was elevated. Cardiology service was consulted. Labs showed WBC of 4.2 [place] [address]. He does have some bruising in upper extremities. He denies any other bleeding. Patient is confused. Etiology of his pancytopenia and could be multifactorial with possibility of nutritional deficiencies including vitamin B12 and iron deficiency. He has lost significant amount of weight in last 6 months according to patient description. Other possibilities include underlying bone marro
--- NOTE | 2020-08-05 13:25 | PM.IMPN ---
Progress Note: A&P Assessment and Plan (1) Altered mental status: Qualifiers: Altered mental status type: unspecified Qualified Code(s): R41.82 - Altered mental status, unspecified Code(s): R41.82 - Altered mental status, unspecified Status: Acute Assessment and Plan: Pt has history of Parkinson CT head and CT spine and CXR - Nil apart from moderate spondylolysis ? seizure related AMS start oral keppra and watch for any more seizures Consult neurology Pt had similar episode of seizures before and was admitted at that time. (2) Elevated troponin: Code(s): R77.8 - Other specified abnormalities of plasma proteins Status: Acute Assessment and Plan: Cardiology Consulted troponin is stable dc heparin (3) New medication added: Code(s): Z79.899 - Other buttermaker (current) drug therapy Status: Acute Assessment and Plan: Hold new medications - entacapone. continue other medications (4) Dehydration: Code(s): E86.0 - Dehydration Status: Resolved Assessment and Plan: Hydrate with iv fluids watch kidney function (5) Pancytopenia: Code(s): D61.818 - Other pancytopenia Status: Acute Assessment and Plan: wcc is low, hb is low, plts is low consult hematology/ oncology, see recommendations (6) NSTEMI (non-ST elevated myocardial infarction): Code(s): I21.4 - Non-ST elevation (NSTEMI) myocardial infarction Status: Acute Assessment and Plan: Heparin drip stopped as troponin is stable, consider heart cath when pt is more stable and less confused. NSTEMI secondary to Abnl EKG and elevated troponin. Subjective Date/time seen: 08/05/20 13:25 Interval history: 79-year-old gentleman who presents to the emergency department with chief complaint of altered mental status. History from on admission as pt was somnolent with seizure. Pt is too confused for heart cath today. Pt denies chest pain today or sob. Pt appears pleasant confused. No further seizures. Review of Systems Review of Systems: All systems reviewed & are unremarkable except as noted in HPI and below Exam Narrative: Exam Narrative: Pleasantly confused Const: Nutritional Appearance: other (thin and frail ) HENMT: Head: normocephalic Eyes: General: appearance normal, both eyes and all related structures Pupils: Equal, round and reactive pupils present Neck: Neck: supple Chest: Chest palpation & inspection: normal inspection of the chest Resp: Effort & Inspection: normal respiratory effort Auscultation: clear to auscultation bilaterally Cardio: Jugular venous distension: no JVD Rhythm: regular rhythm Heart sounds: S1 normal heart sound present and S2 normal heart sound present GI: Inspection: normal to inspection Auscultation: normal bowel sounds Skin: General skin exam: normal color and dry skin Neuro: Cranial nerves: Yes CN's II-XII intact bilaterally and Yes Equal, round and reactive pupils present Cognition (Neuro): normal cognition Speech: normal speech Motor exam (neuro): 5/5 motor strength present throughout Extrem: General: normal to inspection Psych: Appearance: grossly normal Mental Status: mental status grossly normal Objective Data Vital Signs Vital Signs: Vital Signs - 24 hr 08/04/20 14:00 08/04/20 16:00 08/04/20 18:00 Temperature 36.6 C Pulse Rate 65 71 58 L Respiratory Rate 14 Blood Pressure 106/57 L Pulse Oximetry 98 08/04/20 18:45 08/04/20 19:42 08/04/20 20:00 Temperature 36.6 C 36.6 C Pulse Rate 80 70 65 Respiratory Rate 14 18 Blood Pressure 110/89 143/72 H Pulse Oximetry 98 99 08/04/20 20:38 08/04/20 22:00 08/04/20 23:50 Temperature 36.6 C Pulse Rate 63 64 68 Respiratory Rate 20 Blood Pressure 129/81 Pulse Oximetry 92 08/05/20 00:00 08/05/20 02:00 08/05/20 04:00 Temperature 36.4 C Pulse Rate 61 54 L 65 Respiratory Rate 18 Blood Pressure
[2020-08-05 14:14] LABS: Iron 42 ug/dL (49-181)
[2020-08-05 14:23] LABS: Percent Iron Saturation 13 % (20-50)
[2020-08-05 14:37] LABS: Folic Acid 19.3 ng/mL (2.76->20); Vitamin B12 < 159.0 pg/mL (239-931)
[2020-08-05] MEDS: metFORMIN HCL 500 MG TABLET 1000 MG PO (17:12)
[2020-08-05 18:07] LABS: Glucose Point of Care 234 (65-105)
[2020-08-05 18:07] LABS: Glucose Point of Care 233 (65-105)
[2020-08-05] MEDS: QUEtiapine FUMARATE 25 MG TABLET 50 MG PO (20:22)
[2020-08-05] MEDS: clonazePAM (*CRX) 0.5 MG TABLET PO (20:24)
[2020-08-05 20:49] LABS: Glucose Point of Care 269 (65-105)
[2020-08-06] VITALS (14 sets, daily range): BP systolic 106–140; BP diastolic 54–70; PULSE 55–74; RESP 16–19; TEMP 36.4–36.6; O2SAT 18–98
[2020-08-06] MEDS: NITROGLYCERIN OINTMENT 1 INCH DOSE 0.5 INCH TRANSDERM (06:09)
[2020-08-06 06:24] LABS: Hematocrit 30.9 % (42.0-52.0); Hemoglobin 10.2 g/dL (14.0-18.0); Mean Corpuscular Hemoglobin 31.7 pg (26-34); Mean Platelet Volume 9.3 fl (7.4-10.4); Platelet Count Result 80 k/mm3 (150-375); Red Blood Count 3.22 M/mm3 (4.6-6.20); Red Cell Distribution Width 13.5 % (11.5-14.5)
[2020-08-06 06:41] LABS: Anion Gap 5 mmol/L (8-16); Blood Urea Nitrogen 17 mg/dL (9-20); Carbon Dioxide 31 mmol/L (22-30); Chloride 107 mmol/L (98-107); Estimated CRCL calculation 66 ml/min; Estimated Glomerular Filt Rate > 60; Glucose 176 mg/dL (75-110); Potassium 3.4 mmol/L (3.4-5.0); Sodium 143 mmol/L (137-145)
[2020-08-06 08:26] LABS: Glucose Point of Care 166 (65-105)
--- NOTE | 2020-08-06 08:56 | PM.PNCARD ---
Progress Note: A&P Assessment and Plan (1) Elevated troponin: Code(s): R77.8 - Other specified abnormalities of plasma proteins Status: Acute Assessment and Plan: Troponins are essentially flat, and likely non ACS related. Patient has history of CAD, and echocardiogram shows severe LV systolic dysfunction with segmental wall motion abnormality. Ischemic workup can be considered once patient's delirium is resolved, and pancytopenia has been worked up. Given patient's current clinical scenario, there is now urgency for cardiac catheterization. It will also be prudent to know patient's baseline functional status before consideration for invasive workup. Continue aspirin, beta-champ, statin. Add low-dose ACEI, up titrate as tolerated. (2) CAD (coronary artery disease): Code(s): I25.10 - Atherosclerotic heart disease of [place] coronary artery without angina pectoris Status: Acute Assessment and Plan: As detailed above (3) Hypertension: Code(s): I10 - Essential (primary) hypertension Status: Acute Assessment and Plan: Controlled (4) Hyperlipidemia: Code(s): E78.5 - Hyperlipidemia, unspecified Status: Acute Assessment and Plan: On statin (5) Parkinsons disease: Code(s): G20 - Parkinson's disease Status: Acute Assessment and Plan: With associated dementia. Management as per primary team (6) Cardiomyopathy: Code(s): I42.9 - Cardiomyopathy, unspecified Status: Acute Assessment and Plan: Ischemic and severe Subjective Date/time seen: 08/06/20 08:56 Interval history: 79-year-old gentleman who presents to the emergency department with chief complaint of altered mental status. History from on admission as pt was somnolent with seizure. Date of service: 08/06/2020 Interval history: Patient remains delirious; no active chest pain. His troponins have been flat. Echo shows LVEF 25-30% with segmental wall motion abnormality. Exam Narrative: Exam Narrative: PHYSICAL EXAMINATION: GENERAL: Somnolent, lying on the bed MENTAL STATUS: Somnolent EYES: Extraocular movements intact EARS: External ears appear normal NOSE: Normal and patent, no discharge MOUTH: Mucous membranes dry NECK: Supple, JVD CHEST: Decreased respiratory effort HEART: Regular, distant heart sounds ABDOMEN: Soft, nontender NEUROLOGICAL: Somnolent, confused MUSCULOSKELETAL: No amputation EXTREMITIES: No pedal edema SKIN: Ecchymosis on the arms PSYCHIATRIC: Confused Objective Data Vital Signs Vital Signs: Vital Signs - 24 hr 08/05/20 09:39 08/05/20 10:00 08/05/20 12:00 Temperature 35.7 C L Pulse Rate 90 87 62 Respiratory Rate 18 Blood Pressure 91/43 L Pulse Oximetry 93 08/05/20 14:00 08/05/20 16:00 08/05/20 18:00 Temperature 36.0 C L Pulse Rate 70 61 81 Respiratory Rate 22 H Blood Pressure 131/67 Pulse Oximetry 97 08/05/20 20:00 08/05/20 20:23 08/05/20 22:00 Temperature 36.3 C L Pulse Rate 76 71 63 Respiratory Rate 20 Blood Pressure 110/53 L Pulse Oximetry 08/06/20 00:00 08/06/20 02:00 08/06/20 04:00 Temperature 36.4 C 36.4 C Pulse Rate 59 L 55 L 62 Respiratory Rate 19 Blood Pressure 106/54 L 110/56 L Pulse Oximetry 98 18 L 08/06/20 06:00 08/06/20 08:00 Temperature 36.6 C Pulse Rate 60 61 Respiratory Rate 16 Blood Pressure 140/64 Pulse Oximetry 95 Intake/Output Intake/Output: Intake & Output 08/03/20 08/04/20 08/05/20 08/06/20 23:59 23:59 23:59 23:59 Intake Total 2504 450 830 Output Total 400 475 350 Balance 2104 -25 480 Meds/Results Medications: Active Medications Generic Name Dose Route Start Last Admin Trade Name Freq PRN Reason Stop Dose Admin Aspirin 81 mg 08/03/20 09:00 08/05/20 09:48 Aspirin 81 Mg Enteric Tablet PO 81 mg DAILY MATTHEW Administration Atorvastatin Calcium 20 mg 08/03/20 09:00 08/05/20
[2020-08-06] MEDS: CYANOCOBALAMIN INJ 1,000 MCG/ML VIAL 1000 MCG IM (10:15)
[2020-08-06] MEDS: OLANZapine 10 MG INJ VIAL 2.5 MG IM (11:05)
[2020-08-06] MEDS: WATER, STERILE FOR INJECTION 10 ML VIAL XX (11:06)
--- NOTE | 2020-08-06 11:38 | PCCPR ---
Flier was given to patient by IMU staff.
[2020-08-06 12:10] LABS: Glucose Point of Care 202 (65-105)
[2020-08-06] MEDS: INSULIN ASPART (*BKC) 100 UNITS/ML SUB-Q (12:32)
--- NOTE | 2020-08-06 13:23 | PM.IMPN ---
Progress Note: A&P Assessment and Plan (1) Altered mental status: Qualifiers: Altered mental status type: unspecified Qualified Code(s): R41.82 - Altered mental status, unspecified Code(s): R41.82 - Altered mental status, unspecified Status: Acute Assessment and Plan: Pt has history of Parkinson CT head and CT spine and CXR - Nil apart from moderate spondylolysis ? seizure related AMS start oral keppra and watch for any more seizures Consult neurology Pt had similar episode of seizures before and was admitted at that time. 08/06/20 13:23 Patient is 79-year-old male with history of Parkinson's and delirium was brought emergency department with altered mental status, patient still quite confused unable to provide any review of symptom his is present in the room, patient has elevated tropes and seen by Cardiology recommending cardiac catheterization however patient is quite confused and unable to provide any consent, I discussed with the patient's because of patient quality of life and poor prognosis she has decided to place the patient under comfort care and will discuss with hospice for possibly discharge to hospice tomorrow, will continue to monitor the patient. (2) Elevated troponin: Code(s): R77.8 - Other specified abnormalities of plasma proteins Status: Acute Assessment and Plan: Cardiology Consulted troponin is stable dc heparin (3) New medication added: Code(s): Z79.899 - Other termite exterminator (current) drug therapy Status: Acute Assessment and Plan: Hold new medications - entacapone. continue other medications (4) Dehydration: Code(s): E86.0 - Dehydration Status: Resolved Assessment and Plan: Hydrate with iv fluids watch kidney function (5) Pancytopenia: Code(s): D61.818 - Other pancytopenia Status: Acute Assessment and Plan: wcc is low, hb is low, plts is low consult hematology/ oncology, see recommendations (6) NSTEMI (non-ST elevated myocardial infarction): Code(s): I21.4 - Non-ST elevation (NSTEMI) myocardial infarction Status: Acute Assessment and Plan: Heparin drip stopped as troponin is stable, consider heart cath when pt is more stable and less confused. NSTEMI secondary to Abnl EKG and elevated troponin. Subjective Date/time seen: 08/06/20 13:23 Patient is 79-year-old male with history of Parkinson's and delirium was brought emergency department with altered mental status, patient still quite confused unable to provide any review of symptom his is present in the room, patient has elevated tropes and seen by Cardiology recommending cardiac catheterization however patient is quite confused and unable to provide any consent, I discussed with the patient's because of patient quality of life and poor prognosis she has decided to place the patient under comfort care and will discuss with hospice for possibly discharge to hospice tomorrow, will continue to monitor the patient. Review of Systems Review of Systems: ROS unobtainable: Yes unobtainable due to medical condition Exam Narrative: Exam Narrative: Elderly frail chronically ill Patient is comfortable, NAD HEENT: eyes are clear and none icteric LUNGS:CTA HEART: RR S1S2 ABD: BS+, Soft and nontender Lower extremities: no edema SKIN: nonjaundiced Neuro: Confused somnolent. Objective Data Vital Signs Vital Signs: Vital Signs - 24 hr 08/05/20 14:00 08/05/20 16:00 08/05/20 18:00 Temperature 96.8 F L Pulse Rate 70 61 81 Respiratory Rate 22 H Blood Pressure 131/67 Pulse Oximetry 97 08/05/20 20:00 08/05/20 20:23 08/05/20 22:00 Temperature 97.4 F L Pulse Rate 76 71 63 Respiratory Rate 20 Blood Pressure 110/53 L Pulse Oximetry 08/06/20 00:00 08/06/20 02:00 08/06/20 04:00 Temperature 97.6 F 97.6 F Pulse Rate 59 L 55 L 62 Respiratory Rate 19 Blood Pressure 106/54 L 110/56
--- NOTE | 2020-08-06 17:00 | PC.NURSE ---
Received via bed from [facility] .
--- NOTE | 2020-08-06 17:05 | PC.NURSE ---
This patient, Conner Gaxiola, was transferred to [ [id number] ] on 08/06/20 at 1700. Personal belongings sent with patient. Report given to [ YAS Castro ]. Appropriate documentation sent with patient.
[2020-08-06 17:13] LABS: Glucose Point of Care 181 (65-105)
[2020-08-06 17:14] LABS: Glucose Point of Care 168 (65-105)
[2020-08-06 20:08] LABS: Glucose Point of Care 296 (65-105)
[2020-08-06] MEDS: clonazePAM (*CRX) 0.5 MG TABLET PO (22:10)
[2020-08-06] MEDS: CARBIDOPA/LEVODOPA 12.5/50 MG TABLET 1 TABLET PO (22:10)
[2020-08-06] MEDS: QUEtiapine FUMARATE 25 MG TABLET 50 MG PO (22:10)
[2020-08-06] MEDS: METOPROLOL TARTRATE 12.5 MG TABLET PO (22:10)
[2020-08-06] MEDS: CARBIDOPA/LEVODOPA 25/100 MG TABLET 2 TABLET PO (22:11)
[2020-08-07 06:00] VITALS: BP 130/72; PULSE 54; RESP 14; TEMP 36.6; O2SAT 99
--- NOTE | 2020-08-07 07:22 | PCOTNOTE ---
Attempted to see Patient for OT treatment session at this time. Patient stated, NO . Patient was encourged to participate, educated on the importance of movement. Patient getting very agitated and yelling, NO, Go Away . Patient did not receive any services at this time. RN notified and aware, she verbalized he usually has a sitter, but because he has been sleeping no one id in there at this time. RN verbalized she will be keeping an eye on him.
[2020-08-07 08:00] VITALS: BP 146/58; PULSE 63; RESP 14; TEMP 37.3; O2SAT 98
--- NOTE | 2020-08-07 10:40 | PM.PNCARD ---
Progress Note: A&P Additional Plan 79-year-old man with previous coronary history is detailed in the consultation note. He entered the hospital with mental status alterations/delirium after taking a fall at home. Apparently his mental status has been slowly declining according to the notes in the chart. He is now a DNR patient and considering hospice level care. In this setting he is not a candidate for follow-up coronary angiography and I do not believe would benefit from ongoing follow-up in my office. We will sign off of his care at this time please call me if things change in further input from us is desired. Agus Martinez MD [facility] Subjective Date/time seen: Date of service: 08/07/20 10:40 Interval history: Follow-up visit in this 79-year-old man with: Coronary artery disease and previous percutaneous cutaneous revascularization is detailed in the prior notes. Patient was admitted to hospital primarily because of altered mental status/agitation after taking a fall over the weekend. Follow-up catheterization was recommended/discussed by my partner over the weekend but has not taken place because the patient's mental status/agitation has not permitted this to happen safely he is now on the medical floor and has been made a DNR patient. According to the hospitalist's notes plans are in place to consider hospice care and discharge in that fashion. Today the patient is in bed resting comfortably does not offer any cardiovascular complaints of any kind. Exam Const: General: comfortable and no acute distress Other: Elderly frail white male sleeping flat in bed when I came in to see him upon awakening offers no cardiac complaints HENMT: Mouth: Yes dry mucous membranes Eyes: Sclera: sclerae normal Pupils: Equal, round and reactive pupils present Neck: Neck: supple and no JVD Thyroid: thyroid normal Resp: Effort & Inspection: normal respiratory effort Auscultation: clear to auscultation bilaterally Cardio: Rate: regular rate Rhythm: regular rhythm GI: GI Palp: Yes Soft to palpation Auscultation: normal bowel sounds Neuro: Cognition (Neuro): abnormal cognition Extrem: General: normal to inspection Objective Data Vital Signs Vital Signs: Vital Signs - 24 hr 08/06/20 12:00 08/06/20 14:00 08/06/20 16:00 Temperature 36.4 C Pulse Rate 60 67 Respiratory Rate 16 Blood Pressure 137/59 L 123/70 Pulse Oximetry 95 08/06/20 17:00 08/06/20 17:05 08/06/20 21:18 Temperature 36.6 C Pulse Rate 62 Respiratory Rate 16 16 Blood Pressure 139/65 Pulse Oximetry 97 97 95 08/06/20 21:52 08/06/20 22:10 08/07/20 06:00 Temperature 36.6 C 36.6 C Pulse Rate 63 66 54 L Respiratory Rate 18 14 Blood Pressure 106/65 130/72 Pulse Oximetry 95 99 08/07/20 08:00 Temperature 37.3 C Pulse Rate 63 Respiratory Rate 14 Blood Pressure 146/58 H Pulse Oximetry 98 Intake/Output Intake/Output: Intake & Output 08/04/20 08/05/20 08/06/20 08/07/20 23:59 23:59 23:59 23:59 Intake Total 450 830 600 300 Output Total 931 969 0044 225 Balance -25 480 -1000 75 Meds/Results Medications: Active Medications Generic Name Dose Route Start Last Admin Trade Name Cortezq PRN Reason Stop Dose Admin Aspirin 81 mg 08/03/20 09:00 08/07/20 09:16 Aspirin 81 Mg Enteric Tablet PO Not Given DAILY MATTHEW Atorvastatin Calcium 20 mg 08/03/20 09:00 08/07/20 09:16 Atorvastatin 20 Mg Tablet PO Not Given DAILY MATTHEW Carbidopa/Levodopa 2 tablet 08/02/20 17:00 08/07/20 09:17 Carbidopa/Levodopa 25/100 Mg Tablet PO Not Given QID MATTHEW Carbidopa/Levodopa 1 tablet 08/02/20 17:00 08/07/20 09:17 Carbidopa/Levodopa 12.5/50 Mg Tablet PO Not Given QID MATTHEW Clonazepam 0.5 mg 08/02/20 21:00 08/06/20 22:10 Clonazepam (*Crx) 0.5 Mg Tablet PO 0.5 mg HS MATTHEW Administration Cyanocobalamin 1,000 mcg 08/08/20 09:29 Cyanocobalamin Inj 1,000 Mcg/Ml Vial IM 08/08/20 09:30 ONCE ONE
[2020-08-07 12:42] LABS: Levetiracetam Keppra 21.9 mcg/mL (12.0-46.0)
--- NOTE | 2020-08-07 12:56 | WPDONCPN ---
Progress Note: A/P - Additional Plan Pancytopenia. Abdominal ultrasound came back unremarkable. Vitamin B12 level came back extremely low. Iron level also came back low. Patient is receiving vitamin B12 injection. We will order iron replacement as well. Plan for hospice care noted. No further workup will be performed. Bone marrow biopsy will not be done due to patient overall status. Non STEMI. Cardiology input noted for conservative management. - Time Spent With Patient Total time spent is greater than 50% in coordination of care (as documented) at patient's floor/unit and/or counseling patient: 15 - 25 minutes Subjective Interval history: Pancytopenia Mental status changes Non STEMI Review of Systems - Review of Systems Patient is awake but remains quite confused and not talking much. Patient daughter was present in the room. He has been eating very little. No fevers and chills. - Neurologic Reports hearing normal, Reports confusion, Denies headache(s) Exam Vital signs: Temp Pulse Resp BP Pulse Ox 37.3 C 63 14 146/58 H 98 08/07/20 08:00 08/07/20 08:00 08/07/20 08:00 08/07/20 08:00 08/07/20 08:00 Narrative: Lungs are clear to auscultation bilaterally Cardiovascular regular rate rhythm no murmurs Abdomen soft nontender nondistended bowel sounds are positive Extremities no edema PN: Objective Data - Labs CBC & Chem 7: 08/06/20 06:09 08/06/20 06:09 Labs: Laboratory Results - last 24 hr 08/02/20 08/06/20 08/06/20 17:49 16:50 17:08 POC Capillary Glucose 181 H 168 H Levetiracetam 21.9 08/06/20 20:04 POC Capillary Glucose 296 H Levetiracetam
[2020-08-07] MEDS: levETIRAcetam 500 MG TABLET PO ×2 (13:08→16:28)
[2020-08-07] MEDS: CARBIDOPA/LEVODOPA 25/100 MG TABLET 2 TABLET PO ×2 (13:08→20:10)
[2020-08-07] MEDS: CARBIDOPA/LEVODOPA 12.5/50 MG TABLET 1 TABLET PO ×2 (13:08→20:10)
--- NOTE | 2020-08-07 15:30 | PM.IMPN ---
Progress Note: A&P Assessment and Plan (1) Altered mental status: Qualifiers: Altered mental status type: unspecified Qualified Code(s): R41.82 - Altered mental status, unspecified Code(s): R41.82 - Altered mental status, unspecified Status: Acute Assessment and Plan: Pt has history of Parkinson CT head and CT spine and CXR - Nil apart from moderate spondylolysis ? seizure related AMS start oral keppra and watch for any more seizures Consult neurology Pt had similar episode of seizures before and was admitted at that time. 08/07/20 15:30 Patient is 79-year-old male with history of Parkinson's and delirium was brought emergency department with altered mental status, patient still quite confused unable to provide any review of symptom his is present in the room, patient has elevated tropes and seen by Cardiology recommending cardiac catheterization however patient is quite confused and unable to provide any consent, I discussed with the patient's because of patient quality of life and poor prognosis she has decided to place the patient under comfort care and will discuss with hospice for possibly discharge to hospice tomorrow, will continue to monitor the patient. 08/07 patient family scheduled to meet with hospice later today and patient will be discharged tomorrow under hospice care, unfortunately patient is not able to provide any review of symptoms or history. 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 continue other medications (4) Dehydration: Code(s): E86.0 - Dehydration Status: Resolved Assessment and Plan: Hydrate with iv fluids watch kidney function (5) Pancytopenia: Code(s): D61.818 - Other pancytopenia Status: Acute Assessment and Plan: wcc is low, hb is low, plts is low consult hematology/ oncology, see recommendations (6) NSTEMI (non-ST elevated myocardial infarction): Code(s): I21.4 - Non-ST elevation (NSTEMI) myocardial infarction Status: Acute Assessment and Plan: Heparin drip stopped as troponin is stable, consider heart cath when pt is more stable and less confused. NSTEMI secondary to Abnl EKG and elevated troponin. Subjective Date/time seen: 08/07/20 15:30 Patient is 79-year-old male with history of Parkinson's and delirium was brought emergency department with altered mental status, patient still quite confused unable to provide any review of symptom his is present in the room, patient has elevated tropes and seen by Cardiology recommending cardiac catheterization however patient is quite confused and unable to provide any consent, I discussed with the patient's because of patient quality of life and poor prognosis she has decided to place the patient under comfort care and will discuss with hospice for possibly discharge to hospice tomorrow, will continue to monitor the patient. 08/07 patient family scheduled to meet with hospice later today and patient will be discharged tomorrow under hospice care, unfortunately patient is not able to provide any review of symptoms or history. Review of Systems Review of Systems: ROS unobtainable: Yes unobtainable due to medical condition Exam Narrative: Exam Narrative: Elderly frail chronically ill Patient is comfortable, NAD HEENT: eyes are clear and none icteric LUNGS:CTA HEART: RR S1S2 ABD: BS+, Soft and nontender Lower extremities: no edema SKIN: nonjaundiced Neuro: Confused somnolent. Objective Data Vital Signs Vital Signs: Vital Signs - 24 hr 08/06/20 16:00 08/06/20 17:00 08/06/20 17:05 Temperature 97.8 F Pulse
[2020-08-07 16:00] VITALS: BP 131/64; PULSE 60; RESP 14; TEMP 36.7; O2SAT 97
[2020-08-07] MEDS: GABAPENTIN 300 MG CAPSULE PO (16:28)
[2020-08-07] MEDS: metFORMIN HCL 500 MG TABLET 1000 MG PO (16:28)
[2020-08-07 17:18] LABS: Glucose Point of Care 180 (65-105)
[2020-08-07 20:00] VITALS: PULSE 61; RESP 16; O2SAT 98
[2020-08-07 20:10] VITALS: PULSE 70
[2020-08-07] MEDS: clonazePAM (*CRX) 0.5 MG TABLET PO (20:10)
[2020-08-07] MEDS: METOPROLOL TARTRATE 12.5 MG TABLET PO (20:10)
[2020-08-07] MEDS: QUEtiapine FUMARATE 25 MG TABLET 50 MG PO (20:10)
[2020-08-07 21:10] VITALS: BP 139/60; PULSE 61; RESP 16; TEMP 36.2; O2SAT 98
[2020-08-07 21:25] LABS: Glucose Point of Care 174 (65-105)
[2020-08-08] VITALS: BP 141/67; PULSE 63; RESP 18; TEMP 36.2; O2SAT 100
[2020-08-08 05:02] VITALS: BP 152/74; PULSE 72; RESP 18; TEMP 35.9; O2SAT 94
[2020-08-08 09:09] VITALS: PULSE 72
[2020-08-08] MEDS: PIOGLITAZONE HCL 30 MG TABLET PO (09:09)
[2020-08-08] MEDS: METOPROLOL TARTRATE 12.5 MG TABLET PO (09:09)
[2020-08-08] MEDS: GABAPENTIN 300 MG CAPSULE PO ×2 (09:10→17:33)
[2020-08-08] MEDS: levETIRAcetam 500 MG TABLET PO ×3 (09:10→17:33)
[2020-08-08] MEDS: CARBIDOPA/LEVODOPA 25/100 MG TABLET 2 TABLET PO ×3 (09:10→17:33)
[2020-08-08] MEDS: FERROUS SULFATE 324 MG TABLET PO (09:10)
[2020-08-08] MEDS: ASPIRIN 81 MG ENTERIC TABLET PO (09:10)
[2020-08-08] MEDS: ATORVASTATIN 20 MG TABLET PO (09:10)
[2020-08-08] MEDS: glipiZIDE 5 MG TABLET PO (09:10)
[2020-08-08] MEDS: metFORMIN HCL 500 MG TABLET 1000 MG PO ×2 (09:10→17:33)
[2020-08-08] MEDS: CARBIDOPA/LEVODOPA 12.5/50 MG TABLET 1 TABLET PO ×3 (09:10→17:33)
[2020-08-08] MEDS: lisinopriL 5 MG TABLET PO (09:11)
[2020-08-08] MEDS: CYANOCOBALAMIN INJ 1,000 MCG/ML VIAL 1000 MCG IM (09:23)
[2020-08-08 09:30] LABS: Glucose Point of Care 191 (65-105)
--- NOTE | 2020-08-08 09:33 | WPDNEUROPN ---
Progress Note: A&P Assessment and Plan (1) Parkinsons disease: Code(s): G20 - Parkinson's disease Status: Acute (2) Dementia: Code(s): F03.90 - Unspecified dementia without behavioral disturbance Status: Acute Additional Plan abnormal neurological examination compatible with Parkinson's disease with ongoing dementia and intermittent hallucination but neurologically otherwise stable receiving the same medications no change Review of Systems Review of Systems: All systems reviewed & are unremarkable except as noted in HPI and below Exam Const: General: cooperative, alert, awake, anxious, confusion and ill appearing Nutritional Appearance: thin and underweight Orientation/consciousness: oriented to person Limitations: behavioral limitations and physical limitations HENMT: Head: normal to inspection Ears: hearing grossly normal bilaterally General nose exam: Normal external nose present Face and sinus: normal facial exam Mouth: Yes Normal oral and palatal mucosa present Eyes: General: appearance normal, both eyes and all related structures Alignment and Position: alignment normal Eyelids: eyelids normal Conjunctivae: conjunctivae normal Sclera: sclerae normal Cornea: corneas normal Pupils: Equal, round and reactive pupils present EOM: EOMs intact bilaterally Neck: Neck: full ROM Resp: Effort & Inspection: normal respiratory effort and able to speak in complete sentences Cardio: Rate: regular rate Rhythm: regular rhythm GI: Auscultation: normal bowel sounds Skin: General skin exam: no rashes or lesions noted Neuro: General: moves all extremities, no meningeal signs, no focal motor deficits and CN's II-XI intact bilaterally Cranial nerves: Yes CN's II-XII intact bilaterally, Yes Equal, round and reactive pupils present, Yes Bilaterally intact EOM present, Yes Nystagmus not present and Yes Midline tongue present Cognition (Neuro): abnormal cognition Speech: normal speech Gait exam (Neuro): Unable to assess gait Motor exam (neuro): Pronator motor function not present, No tremor noted, Abnormal motor strength present and Motor abnormalites present Sensory Exam: Sensory deficit (Neuro) Deep tendon reflexes (DTR's): Right triceps reflex intensity grade: 1+, Left triceps reflex intensity grade: 1+, Rt Biceps (C5, C6): 1+, Left biceps reflex intensity grade: 1+, Right brachioradialis reflex intensity grade: 1+, Left brachioradialis reflex intensity grade: 1+, Right patellar reflex intensity grade: 1+ and Left patellar reflex intensity grade: 1+ Plantar Reflex Responses: downgoing: bilateral Psych: Speech and movement: Slowed speech present (Psych) Affect: Animated affect present Attitude: cooperative Thought process: Circumstantial thought process present and Other thought process findings present ( disoriented talking about the compensation and benefits administrator has stolen is my) Objective Data Vital Signs Vital Signs: Vital Signs - 24 hr 08/07/20 16:00 08/07/20 20:00 08/07/20 20:10 Temperature 36.7 C Pulse Rate 60 61 70 Respiratory Rate 14 16 Blood Pressure 131/64 Pulse Oximetry 97 98 08/07/20 21:10 08/08/20 00:00 08/08/20 05:02 Temperature 36.2 C L 36.2 C L 35.9 C L Pulse Rate 61 63 72 Respiratory Rate 16 18 18 Blood Pressure 139/60 141/67 H 152/74 H Pulse Oximetry 98 100 94 08/08/20 09:09 Temperature Pulse Rate 72 Respiratory Rate Blood Pressure Pulse Oximetry Intake/Output Intake/Output: Intake & Output 08/05/20 08/06/20 08/07/20 08/08/20 23:59 23:59 23:59 23:59 Intake Total 830 600 500 240 Output Total 350 1600 425 300 Balance 480 -1000 75 -60 Meds/Results Medications: Active Medications Generic Name Dose Route Start Last Admin Trade Name Freq PRN Reason Stop Dose Admin Aspirin 81 mg 08/03/20 09:00 08/08/20 09:10 Aspirin 81 Mg Enteric Tablet PO 81 mg DAILY MATTHEW Administration Atorvastatin Calcium 20 mg 08/03/20 09:00 08/08/20 09:10 Atorvastatin
[2020-08-08 12:14] LABS: Glucose Point of Care 171 (65-105)
[2020-08-08 14:00] VITALS: BP 103/68; PULSE 92; RESP 16; TEMP 36.6; O2SAT 94
--- NOTE | 2020-08-08 14:41 | PM.IMPN ---
Progress Note: A&P Assessment and Plan (1) Altered mental status: Qualifiers: Altered mental status type: unspecified Qualified Code(s): R41.82 - Altered mental status, unspecified Code(s): R41.82 - Altered mental status, unspecified Status: Acute Assessment and Plan: Pt has history of Parkinson CT head and CT spine and CXR - Nil apart from moderate spondylolysis ? seizure related AMS start oral keppra and watch for any more seizures Consult neurology Pt had similar episode of seizures before and was admitted at that time. 08/08/20 14:41 08/06 Patient is 79-year-old male with history of Parkinson's and delirium was brought emergency department with altered mental status, patient still quite confused unable to provide any review of symptom his is present in the room, patient has elevated tropes and seen by Cardiology recommending cardiac catheterization however patient is quite confused and unable to provide any consent, I discussed with the patient's because of patient quality of life and poor prognosis she has decided to place the patient under comfort care and will discuss with hospice for possibly discharge to hospice tomorrow, will continue to monitor the patient. 08/07 patient family scheduled to meet with hospice later today and patient will be discharged tomorrow under hospice care, unfortunately patient is not able to provide any review of symptoms or history. 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 continue other medications (4) Dehydration: Code(s): E86.0 - Dehydration Status: Resolved Assessment and Plan: Hydrate with iv fluids watch kidney function (5) Pancytopenia: Code(s): D61.818 - Other pancytopenia Status: Acute Assessment and Plan: wcc is low, hb is low, plts is low consult hematology/ oncology, see recommendations (6) NSTEMI (non-ST elevated myocardial infarction): Code(s): I21.4 - Non-ST elevation (NSTEMI) myocardial infarction Status: Acute Assessment and Plan: Heparin drip stopped as troponin is stable, consider heart cath when pt is more stable and less confused. NSTEMI secondary to Abnl EKG and elevated troponin. Subjective Date/time seen: 08/08/20 14:41 08/06 Patient is 79-year-old male with history of Parkinson's and delirium was brought emergency department with altered mental status, patient still quite confused unable to provide any review of symptom his is present in the room, patient has elevated tropes and seen by Cardiology recommending cardiac catheterization however patient is quite confused and unable to provide any consent, I discussed with the patient's because of patient quality of life and poor prognosis she has decided to place the patient under comfort care and will discuss with hospice for possibly discharge to hospice tomorrow, will continue to monitor the patient. 08/07 patient family scheduled to meet with hospice later today and patient will be discharged tomorrow under hospice care, unfortunately patient is not able to provide any review of symptoms or history. 08/08 today patient will more awake still quite confused family has decided to admit the patient under hospice care waiting for COVID-19 test most likely will transfer the patient to snf tomorrow and further recommendation to follow Review of Systems Re
[2020-08-08 17:06] LABS: SARS-CoV-2 RNA PCR Negative
[2020-08-08 17:55] LABS: Glucose Point of Care 141 (65-105)
[2020-08-08 22:00] VITALS: BP 134/65; PULSE 83; RESP 18; TEMP 36.4; O2SAT 97
[2020-08-08 22:20] LABS: Glucose Point of Care 142 (65-105)
--- NOTE | 2020-08-08 22:49 | PC.NURSE ---
Patient refusing medications 08/08/2020 21:00 sinemet, lopressor, klonopin, and seroquel.
[2020-08-08 23:41] VITALS: PULSE 70
[2020-08-09] MEDS: LORazepam INJ (*CRX) 2 MG/ML VIAL 0.5 MG IV PUSH (02:20)
[2020-08-09 04:50] VITALS: BP 136/87; PULSE 103; RESP 22; TEMP 36.1; O2SAT 100
[2020-08-09] MEDS: HALOPERIDOL LACTATE 5 MG/ML VIAL IM (04:50)
--- NOTE | 2020-08-09 05:02 | PC.NURSE ---
Staff heard a thud and went to check on patient when they found him on the floor face down, at the end of the bed. Bed alarm was on bed not alarming. No visible injuries, patient confused but able to say forehead was hurting. doctor Wilder was notified of fall and patients complaint of head hurting. Haldol was the only new order received.
[2020-08-09 06:00] VITALS: BP 136/87; PULSE 103; RESP 22; TEMP 36.6; O2SAT 100
[2020-08-09] MEDS: glipiZIDE 5 MG TABLET PO (06:46)
[2020-08-09 09:53] LABS: Glucose Point of Care 145 (65-105)
--- NOTE | 2020-08-09 10:00 | PM.DS ---
DS: Admitting Diagnosis Admitting Diagnosis Admitting Diagnosis: Chief Complaint: Altered mental status DS: Discharge Diagnosis Discharge Diagnosis (1) Altered mental status: Qualifiers: Altered mental status type: unspecified Qualified Code(s): R41.82 - Altered mental status, unspecified Code(s): R41.82 - Altered mental status, unspecified Status: Acute Assessment and Plan: Pt has history of Parkinson CT head and CT spine and CXR - Nil apart from moderate spondylolysis ? seizure related AMS start oral keppra and watch for any more seizures Consult neurology Pt had similar episode of seizures before and was admitted at that time. 08/08/20 14:41 08/06 Patient is 79-year-old male with history of Parkinson's and delirium was brought emergency department with altered mental status, patient still quite confused unable to provide any review of symptom his is present in the room, patient has elevated tropes and seen by Cardiology recommending cardiac catheterization however patient is quite confused and unable to provide any consent, I discussed with the patient's because of patient quality of life and poor prognosis she has decided to place the patient under comfort care and will discuss with hospice for possibly discharge to hospice tomorrow, will continue to monitor the patient. 08/07 patient family scheduled to meet with hospice later today and patient will be discharged tomorrow under hospice care, unfortunately patient is not able to provide any review of symptoms or history. 08/08 today patient will more awake still quite confused family has decided to admit the patient under hospice care waiting for COVID-19 test most likely will transfer the patient to skilled nursing tomorrow and further recommendation to follow (2) Elevated troponin: Code(s): R77.8 - Other specified abnormalities of plasma proteins Status: Acute Assessment and Plan: Cardiology Consulted troponin is stable dc heparin (3) New medication added: Code(s): Z79.899 - Other detention (current) drug therapy Status: Acute Assessment and Plan: Hold new medications - entacapone. continue other medications (4) Dehydration: Code(s): E86.0 - Dehydration Status: Resolved Assessment and Plan: Hydrate with iv fluids watch kidney function (5) Pancytopenia: Code(s): D61.818 - Other pancytopenia Status: Acute Assessment and Plan: wcc is low, hb is low, plts is low consult hematology/ oncology, see recommendations (6) NSTEMI (non-ST elevated myocardial infarction): Code(s): I21.4 - Non-ST elevation (NSTEMI) myocardial infarction Status: Acute Assessment and Plan: Heparin drip stopped as troponin is stable, consider heart cath when pt is more stable and less confused. NSTEMI secondary to Abnl EKG and elevated troponin. DS: Summary Hospital Course Reason for hospitalization: Chief Complaint: Altered mental status Narrative: 79-year-old gentleman who presents to the emergency department with chief complaint of altered mental status. Pt has history of Parkinsons disease. Pt appears somnolent history taken from . states he was had seizure and got confused, falling and hitting her face yesterday. Pt was started on a new medication, entacapone from Dr Jaydon Mayfield office. Pt has not been eating or drinking much at home, denies SOB, fever cough, nausea or diarrhea. ? seizure ? unstable angina Hospital Course: 08/06 Patient is 79-year-old male with history of Parkinson's and delirium was brought emergency department with altered mental status, patient still quite confused unable to provide any review of symptom his is present in the room, patient has elevated tropes and seen by Cardiology recommending cardiac catheterization however patient is quite confused and unable to provide any consent, I discussed with the patient's
[2020-08-09 13:23] LABS: Glucose Point of Care 111 (65-105)
[2020-08-09 14:00] VITALS: BP 102/60; PULSE 80; RESP 16; TEMP 36.4; O2SAT 94
[2020-08-09 14:14] VITALS: PULSE 103
== END 2020-08-09 15:59 | disposition hospice, inpatient (51) | DRG 282 ==
LOC: ANHED 05:58 → ANHIMU 06:09 → ANH2MED 08-09 09:59 → ANHIMU 08-13 14:07
PROVIDERS: Family Medicine; Internal Medicine Cardiovascular Disease; Internal Medicine Hematology & Oncology; Admitting Provider Family Medicine; Emergency Provider Emergency Medicine; PCP Family Medicine; Visit Provider Family Medicine
DX: I21.4 Non-ST elevation (NSTEMI) myocardial infarction (principal); Z20.822 Contact with and (suspected) exposure to COVID-19; E86.0 Dehydration; D64.9 Anemia, unspecified; D69.6 Thrombocytopenia, unspecified; R56.9 Unspecified convulsions; I25.5 Ischemic cardiomyopathy; G20 Parkinson's disease; I10 Essential (primary) hypertension; F03.90 Unspecified dementia, unspecified severity, without behavioral disturbance, psychotic disturbance, mood disturbance, and anxiety; I25.10 Atherosclerotic heart disease of native coronary artery without angina pectoris; E78.5 Hyperlipidemia, unspecified; W19.XXXA Unspecified fall, initial encounter; Z87.891 Personal history of nicotine dependence; Z95.5 Presence of coronary angioplasty implant and graft
CPT/HCPCS: 36415; 36600; 70450; 71045; 72125; 76700; 80048; 80053; 80177; 80307; 81001; 82140; 82607; 82728; 82746; 82805; 82948; 83540; 83550; 83605; 84443; 84484; 85025; 85027; 85055; 85610; 85730; 93005; 93306; 96361; 96366; 96372; 96375; 97110; 97116; 97162; 97165; 97530; 97535; 99285; A9270; C9803; G0378; J1630; J1644; J1756; J1815; J2060; J3420; J7030; J7040; U0003; U0005

== ENCOUNTER 2020-08-09 16:00 | HOS | payer OTHER, SELFPAY ==
[2020-08-09] MEDS: MORPHINE SULFATE ORAL CONC SOL (*CRX) 10 MG/0.5 ML SYRINGE 5 MG PO (19:00)
[2020-08-09 19:49] VITALS: BMI 20.5
[2020-08-09] MEDS: LORazepam (*CRX) 2 MG/ML 30 ML ORAL CONCENTRATE 0.5 MG SUBLINGUAL (20:05)
[2020-08-10] VITALS: BP 130/64; PULSE 68; RESP 16; TEMP 36.9; O2SAT 98
[2020-08-10] MEDS: MORPHINE SULFATE ORAL CONC SOL (*CRX) 10 MG/0.5 ML SYRINGE 5 MG PO ×5 (00:32→19:31)
[2020-08-10] MEDS: LORazepam (*CRX) 2 MG/ML 30 ML ORAL CONCENTRATE 0.5 MG SUBLINGUAL ×5 (01:00→19:32)
[2020-08-10 09:51] VITALS: O2SAT 98
--- NOTE | 2020-08-10 10:32 | PM.IMHP ---
H&P: HPI History of Present Illness Date/Time: 08/10/20 10:32 Patient is 79-year-old male with history of Parkinson's and delirium was brought emergency department with altered mental status, patient still quite confused unable to provide any review of symptom his is present in the room, patient has elevated tropes and seen by Cardiology recommending cardiac catheterization however patient is quite confused and unable to provide any consent, I discussed with the patient's because of patient quality of life and poor prognosis she has decided to place the patient under comfort care and on 08/09 patient was discharged to hospice. 08/10 Patient in now admitted under hospice and comfort care, unfortunately patient is unable to provide any review of symptom or history, he appears clam and no pain, his is present in the room, will continue to monitor and further recommendation to follow Chief Complaint: Hospice care Review of Systems Review of Systems: ROS unobtainable: Yes unobtainable due to medical condition PMFSH Past Medical History Medical History CAD (coronary artery disease) Hyperlipidemia Hypertension Parkinsons disease Family History Family History Mother Acute myocardial infarction Social History Social History Smoking packs per day: 1 Smoking cigarettes per day: 20.0 Years smoked: 10 Smoking pack-years: 10.00 Smoking status: Former smoker Spiritual care concerns: No Meds Home Medications and Allergies Home Medications Medication Instructions Recorded Confirmed Type aspirin 81 mg PO DAILY 08/02/20 08/02/20 History atorvastatin 20 mg PO DAILY 08/02/20 08/02/20 History carbidopa-levodopa 2.5 tablet PO QID 08/02/20 08/02/20 History clonazepam 0.5 mg PO HS 08/02/20 08/02/20 History entacapone 200 mg PO TID 08/02/20 08/02/20 History gabapentin 300 mg PO BID 08/02/20 08/02/20 History glipizide 5 mg PO DAILY 08/02/20 08/02/20 History levetiracetam 500 mg PO TID 08/02/20 08/02/20 History metformin 1,000 mg PO BID 08/02/20 08/02/20 History pioglitazone 30 mg PO DAILY 08/02/20 08/02/20 History quetiapine 50 mg PO HS 08/02/20 08/02/20 History ferrous sulfate 324 mg PO DAILY #30 tablet 08/09/20 Rx metoprolol tartrate 12.5 mg PO DAILY #30 tablet 08/09/20 Rx Allergies Allergy/AdvReac Type Severity Reaction Status Date / Time atorvastatin Allergy Unknown sick Verified 04/01/15 11:15 pravastatin Allergy Unknown sick Verified 04/01/15 11:15 simvastatin AdvReac Unknown nausea Verified 08/02/20 04:13 Vital Signs Vital Signs - 24 hr 08/10/20 00:00 Temperature 98.4 F Pulse Rate 68 Respiratory Rate 16 Blood Pressure 130/64 Pulse Oximetry 98 Exam Narrative: Exam Narrative: Elderly frail Patient is comfortable, NAD HEENT: eyes are clear and none icteric LUNGS:CTA HEART: RR S1S2 ABD: BS+, Soft and nontender Lower extremities: no edema SKIN: nonjaundiced Neuro: grossly intact. Assessment and Plan Assessment and plan (1) Hospice care patient: Code(s): Z51.5 - Encounter for palliative care Status: Acute Assessment and Plan: 08/10/20 10:32 Patient is 79-year-old male with history of Parkinson's and delirium was brought emergency department with altered mental status, patient still quite confused unable to provide any review of symptom his is present in the room, patient has elevated tropes and seen by Cardiology recommending cardiac catheterization however patient is quite confused and unable to provide any consent, I discussed with the patient's because of patient quality of life and poor prognosis she has decided to place the patient under comfort care and on 08/09 patient was discharged to hospice. 08/10 Patient in now admitted under hospice and comfort care, unfortunately patient is unable to provide any r
[2020-08-10 14:30] VITALS: BP 140/78; PULSE 95; RESP 16; TEMP 36.2
--- NOTE | 2020-08-10 15:30 | PC.NURSE ---
Received Nitro from pharmacy. Patient's family stated patient is no longer having chest pain. Patient is not complaining of chest pain at this time. Will continue to monitor.
[2020-08-10] MEDS: OLANZapine 10 MG INJ VIAL 5 MG IM (18:25)
[2020-08-10] MEDS: WATER, STERILE FOR INJECTION 10 ML VIAL XX (18:40)
[2020-08-10 20:00] VITALS: PULSE 95; RESP 16; O2SAT 98
[2020-08-10] MEDS: MORPHINE SULFATE (*CRX) 4 MG/ML INJ IV PUSH ×2 (20:41→22:34)
[2020-08-10] MEDS: LORazepam INJ (*CRX) 2 MG/ML VIAL 1 MG IV PUSH (20:48)
[2020-08-10] MEDS: MORPHINE SULFATE INJ (*CRX) 50 MG in SODIUM CHLORIDE 0.9% IV 95 ML IV CONT (20:53)
--- NOTE | 2020-08-10 21:12 | PC.NURSE ---
Daughter is at bedside. Pt is very anxious and agitated. He is yelling out and trying to grab things and climb out of bed. Morphine gtt has been started at 1mg/hr. Before gtt started gave him Morphine 4mg ivp once and Ativan 1mg ivp as well. Currently pt is still very restless. Daughter is upset at the bedside wanting us to do what we can to get him comfortable. Notified Dr. Hdz new orders received.
[2020-08-10 22:03] VITALS: BP 137/89; PULSE 91; RESP 20; TEMP 36.1; O2SAT 94
[2020-08-10] MEDS: LORazepam INJ (*CRX) 2 MG/ML VIAL IV PUSH (22:55)
--- NOTE | 2020-08-11 10:35 | PM.IMPN ---
Progress Note: A&P Assessment and Plan (1) Hospice care patient: Code(s): Z51.5 - Encounter for palliative care Status: Acute Assessment and Plan: 08/11/20 10:35 Patient is 79-year-old male with history of Parkinson's and delirium was brought emergency department with altered mental status, patient still quite confused unable to provide any review of symptom his is present in the room, patient has elevated tropes and seen by Cardiology recommending cardiac catheterization however patient is quite confused and unable to provide any consent, I discussed with the patient's because of patient quality of life and poor prognosis she has decided to place the patient under comfort care and on 08/09 patient was discharged to hospice. 08/10 Patient in now admitted under hospice and comfort care, unfortunately patient is unable to provide any review of symptom or history, he appears clam and no pain, his is present in the room, will continue to monitor and further recommendation to follow. 08/11 patient is somnolent unable to provide any review of symptom, respiratory efforts are poor and bradycardia, family present, will continue to monitor. Subjective Date/time seen: 08/11/20 10:35 Patient is 79-year-old male with history of Parkinson's and delirium was brought emergency department with altered mental status, patient still quite confused unable to provide any review of symptom his is present in the room, patient has elevated tropes and seen by Cardiology recommending cardiac catheterization however patient is quite confused and unable to provide any consent, I discussed with the patient's because of patient quality of life and poor prognosis she has decided to place the patient under comfort care and on 08/09 patient was discharged to hospice. 08/10 Patient in now admitted under hospice and comfort care, unfortunately patient is unable to provide any review of symptom or history, he appears clam and no pain, his is present in the room, will continue to monitor and further recommendation to follow. 08/11 patient is somnolent unable to provide any review of symptom, respiratory efforts are poor and bradycardia, family present, will continue to monitor. Review of Systems Review of Systems: ROS unobtainable: Yes unobtainable due to medical condition Exam Narrative: Exam Narrative: Elderly frail Patient is comfortable, NAD HEENT: eyes are clear and none icteric LUNGS: Poor respiratory effort minimal rhonchi HEART: RR S1S2 [place] ABD: BS+, Soft and nontender Lower extremities: no edema SKIN: nonjaundiced Neuro: grossly intact. Objective Data Vital Signs Vital Signs: Vital Signs - 24 hr 08/10/20 14:30 08/10/20 20:00 08/10/20 22:03 Temperature 97.1 F L 96.9 F L Pulse Rate 95 95 91 Respiratory Rate 16 16 20 Blood Pressure 140/78 137/89 Pulse Oximetry 98 94 Intake/Output Intake/Output: Intake & Output 08/08/20 08/09/20 08/10/20 08/11/20 23:59 23:59 23:59 23:59 Intake Total 260 Balance 260 Meds/Results Medications: Active Medications Generic Name Dose Route Start Last Admin Trade Name Freq PRN Reason Stop Dose Admin Acetaminophen 650 mg 08/09/20 18:26 Acetaminophen 650 Mg Suppository RECTAL Q6H PRN Fever Atropine Sulfate 2 drop 08/09/20 18:27 Atropine Sulfate 1% Ophth Soln 5 Ml Bottle SUBLINGUAL Q4H PRN Secretions Morphine Sulfate 50 mg/ Sodium 100 mls @ 4 mls/hr 08/10/20 21:00 08/10/20 21:24 Chloride IV CONT 2 mg/hr .Q24H MATTHEW 4 mls/hr Infusion 2 MG/HR Lorazepam 2 mg 08/10/20 21:20 08/10/20 22:55 Lorazepam Inj (*Crx) 2 Mg/Ml Vial IV PUSH 2 mg Q2H PRN Administration Anxiety or air hunger Morphine Sulfate 5 mg 08/10/20 17:25 08/10/20 19:31 Morphine Sulfate Oral Conc Charito (*Crx) 10 Mg/0.5 Ml Syringe PO 5 mg Q3HR PRN Administration Pain or air hunger Morphine Sulfate 4 mg 08/10/20
--- NOTE | 2020-08-11 11:21 | PC.NURSE ---
I spoke with the patient's who stated he had a bowel movement 08/09/2020. She denied need for suppository at this time. Will reassess in the morning.
[2020-08-11 18:35] VITALS: BP 116/57; PULSE 101; RESP 12; TEMP 37; O2SAT 88
[2020-08-11] MEDS: MORPHINE SULFATE INJ (*CRX) 50 MG in SODIUM CHLORIDE 0.9% IV 95 ML IV CONT (19:02)
[2020-08-11 21:00] VITALS: BP 109/54; PULSE 106; RESP 16; TEMP 36.8; O2SAT 91
[2020-08-12 07:50] VITALS: RESP 14
[2020-08-12] MEDS: LORazepam INJ (*CRX) 2 MG/ML VIAL IV PUSH ×2 (13:47→16:49)
[2020-08-12 13:51] VITALS: PULSE 120; RESP 32
--- NOTE | 2020-08-12 13:51 | PC.NURSE ---
The patient's respiratory rate was 32, heart rate 120, pulse ox 72%. I notified them that it may make the patient more comfortable to apply 2 L of oxygen. I discussed the use of oxygen in hospice patient's. The patient is using accessory muscles for respirations at this time. The family stated that they did not want oxygen applied that the patient would not want oxygen. I notified them that ativan may make the patient more comfortable, but we can apply oxygen if they desire. They stated that they will try the ativan and if the patient continues to be uncomfortable they will ask for oxygen to be applied.
[2020-08-12] MEDS: MORPHINE SULFATE INJ (*CRX) 50 MG in SODIUM CHLORIDE 0.9% IV 95 ML 6 MG IV CONT (16:41)
--- NOTE | 2020-08-12 17:56 | PM.IMPN ---
Progress Note: A&P Assessment and Plan (1) Hospice care patient: Code(s): Z51.5 - Encounter for palliative care Status: Acute Assessment and Plan: 08/12/20 17:56 Patient is 79-year-old male with history of Parkinson's and delirium was brought emergency department with altered mental status, patient still quite confused unable to provide any review of symptom his is present in the room, patient has elevated tropes and seen by Cardiology recommending cardiac catheterization however patient is quite confused and unable to provide any consent, I discussed with the patient's because of patient quality of life and poor prognosis she has decided to place the patient under comfort care and on 08/09 patient was discharged to hospice. 08/10 Patient in now admitted under hospice and comfort care, unfortunately patient is unable to provide any review of symptom or history, he appears clam and no pain, his is present in the room, will continue to monitor and further recommendation to follow. 08/11 patient is somnolent unable to provide any review of symptom, respiratory efforts are poor and bradycardia, family present, will continue to monitor. 08/12 patient remains somnolent unable to provide any review of system, bradycardic poor respiratory effort his is present and was crying, they been for 62 years, will continue comfort measures and monitor Subjective Date/time seen: 08/12/20 17:56 Patient is 79-year-old male with history of Parkinson's and delirium was brought emergency department with altered mental status, patient still quite confused unable to provide any review of symptom his is present in the room, patient has elevated tropes and seen by Cardiology recommending cardiac catheterization however patient is quite confused and unable to provide any consent, I discussed with the patient's because of patient quality of life and poor prognosis she has decided to place the patient under comfort care and on 08/09 patient was discharged to hospice. 08/10 Patient in now admitted under hospice and comfort care, unfortunately patient is unable to provide any review of symptom or history, he appears clam and no pain, his is present in the room, will continue to monitor and further recommendation to follow. 08/11 patient is somnolent unable to provide any review of symptom, respiratory efforts are poor and bradycardia, family present, will continue to monitor. 08/12 patient remains somnolent unable to provide any review of system, bradycardic poor respiratory effort his is present and was crying, they been for 62 years, will continue comfort measures and monitor Review of Systems Review of Systems: ROS unobtainable: Yes unobtainable due to medical condition Exam Narrative: Exam Narrative: Elderly frail Patient is comfortable, NAD HEENT: eyes are clear and none icteric LUNGS: Poor respiratory effort minimal rhonchi HEART: RR S1S2 [place] ABD: BS+, Soft and nontender Lower extremities: no edema SKIN: nonjaundiced Neuro: grossly intact. Objective Data Vital Signs Vital Signs: Vital Signs - 24 hr 08/11/20 18:35 08/11/20 21:00 08/12/20 07:50 Temperature 98.6 F 98.3 F Pulse Rate 101 H 106 H Respiratory Rate 12 16 14 Blood Pressure 116/57 L 109/54 L Pulse Oximetry 88 L 91 Intake/Output Intake/Output: Intake & Output 08/09/20 08/10/20 08/11/20 08/12/20 23:59 23:59 23:59 23:59 Intake Total 260 94 95.0 Output Total 125 Balance 260 -31 95.0 Meds/Results Medications: Active Medications Generic Name Dose Route Start Last Admin Trade Name Freq PRN Reason Stop Dose Admin Acetaminophen 650 mg 08/09/20 18:26 Acetaminophen 650 Mg Suppository RECTAL Q6H PRN Fever Atropine Sulfate 2 drop 08/09/20 18:27 Atropine Sulfate 1% Ophth Soln 5 Ml Bottle SUBLINGUAL Q4H PRN Secretions Bisacodyl 10 mg 08/11/20 11:20 Bisacodyl 1
[2020-08-12 18:44] VITALS: BP 94/47; PULSE 108; RESP 14; TEMP 37.2; O2SAT 63
--- NOTE | 2020-08-13 02:14 | PC.NURSE ---
2mg IV Ativan returned to pharmacy in person by this nurse
--- NOTE | 2020-08-14 20:19 | P.DN_ITS ---
Discharge Sum: Prov Provider Primary care physician: Benigno Carlson MD Admitting provider: Ofelia Saravia MD Discharge Sum: Diag Contributing Factors (1) Hospice care patient: Discharge Sum: Summary Date and Time Date of admission: 08/09/20 16:00 Date of : 08/12/20 Time of : 20:54 Summary Details: 08/12/20 17:56 Patient is 79-year-old male with history of Parkinson's and delirium was brought emergency department with altered mental status, patient still quite confused unable to provide any review of symptom his is present in the room, patient has elevated tropes and seen by Cardiology recommending cardiac catheterization however patient is quite confused and unable to provide any consent, I discussed with the patient's because of patient quality of life and poor prognosis she has decided to place the patient under comfort care and on 08/09 patient was discharged to hospice. 08/10 Patient in now admitted under hospice and comfort care, unfortunately patient is unable to provide any review of symptom or history, he appears clam and no pain, his is present in the room, will continue to monitor and further recommendation to follow. 08/11 patient is somnolent unable to provide any review of symptom, respiratory efforts are poor and bradycardia, family present, will continue to monitor. 08/12 patient remains somnolent unable to provide any review of system, bradycardic poor respiratory effort his is present and was crying, they been for 62 years, will continue comfort measures and monitor patient on 08/12/20 at 20:54 Additional Data Confirmation of as documented by pronouncing clinician: no pulse, no respirations, no heart sounds and pupils fixed and dilated Family: at bedside Attending/PCP notified?: Yes Attending physician: Ofelia Saravia MD Was code activated?: No Autopsy requested?: No legal instruments examiner notified?: Yes Organ bank notified?: No Advance directives: No Hospice patient?: Yes
== END 2020-08-12 20:54 | disposition expired | DRG 951 ==
PROVIDERS: Admitting Provider Family Medicine; PCP Family Medicine; Visit Provider Family Medicine
DX: Z51.5 Encounter for palliative care (principal); G20 Parkinson's disease; R41.0 Disorientation, unspecified; I25.10 Atherosclerotic heart disease of native coronary artery without angina pectoris; I10 Essential (primary) hypertension; E78.5 Hyperlipidemia, unspecified; Z87.891 Personal history of nicotine dependence
CPT/HCPCS: A9270; J2060; J2270